=== PATIENT | male | born 1930 | race Caucasian/White ===

== ENCOUNTER 2017-03-25 19:52 | Inpatient (IN) | payer OTHER, BC ==
--- NOTE | 2017-03-25 20:09 | EDPHY ---
H & P Stated Complaint: lower back pain radiating down both legs x 2 days Time Seen by Provider: 03/25/17 20:26 HPI/ROS: CHIEF COMPLAINT: Low back pain HISTORY OF PRESENT ILLNESS: Information provided primarily by the patient's . This patient is an 86 year old male with history of non-Hodgkin's lymphoma, pacemaker, and dementia who presents to the Emergency Department via EMS for worsening low back pain over the past two months. He was originally diagnosed with non-Hodgkin's lymphoma in the summer of 2015. He was treated with chemotherapy, then was diagnosed with abdominal carcinomatosis and most recently completed chemo in 10/17, since which time he has been in remission. However, he has been complaining of worsening back pain over the past two months. His pain is in the low back and both legs. Recently he has been experiencing spasms of pain. He had a CT of the lumbar spine on 02/27 at [facility]. A steroid injection was performed 2 weeks ago. He was better for 1 day but has been progressively worsening since the injection. His reports that his pain has been worsening to the point of preventing him from ambulating appropriately around the house. She is unsure if he has bowel or urinary difficulties; no evidence of incontinence. REVIEW OF SYSTEMS: A ten point review of systems was performed but is limited secondary to the patient's dementia. does not report any additional complaints that she is aware of. Source: Family, Old records Exam Limitations: Clinical condition - Personal History Current Tetanus/Diphtheria Vaccine: Unsure Current Tetanus Diphtheria and Acellular Pertussis (TDAP): Unsure Tetanus Vaccine Date: this year - Medical/Surgical History Hx Asthma: No Hx Chronic Respiratory Disease: No Hx Diabetes: No Hx Cardiac Disease: Yes Hx Renal Disease: No Hx Cirrhosis: No Hx Alcoholism: No Hx HIV/AIDS: No Hx Splenectomy or Spleen Trauma: No Other PMH: pacemaker, TRIGEMINAL NEURALGIA, NON HODGKINS LYMPHOMA, LYMPH NODE REMOVAL, BASAL CELL ,afib, cad w/ stent,CARCINOMA REMOVED, UTI, viral bronchitis - Social History Smoking Status: Never smoked Alcohol Use: None Additional Social History: , who is the patient's integration aide, at bedside. Patient lives at home in a 3- story town home with his . 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 - Physical Exam Exam: General Appearance: Alert. Vital signs reviewed. Hypertensive at 139/76. Afebrile. Eyes: Pupils equal and round, no conjunctival injection, no discharge. Anicteric. ENT, Mouth: Mucous membranes are moist, no oropharyngeal erythema or edema. Neck: No lymphadenopathy, supple. No cervical spine tenderness. Respiratory: Lungs are clear to auscultation; no wheezes, rales, or rhonchi. Cardiovascular: Regular rate and rhythm; no murmur, rub, or gallop. Gastrointestinal: Abdomen is soft and nontender, no masses or organomegaly, bowel sounds normal. Rectal: Normal rectal tone. Skin: Warm and dry, no rashes on exposed skin, normal color. Back: Tender to palpation over the lower lumbar and sacral spine. No palpable deformities. Extremities: No lower extremity edema, no calf tenderness or swelling. Has 4+ over 5 lower extremity strength with the exception of left dorsiflexion which is 4/5. Sensation is intact to light touch. Neurological: Alert. Psychiatric: Normal affect. Cooperative and pleasant. Constitutional: Initial Vital Signs Temperature (C) 36.5 C 03/25/17 20:02 Heart Rate 69 03/25/17 20:02 Respiratory Rate 16 03/25/17 20:02 Blood Pressure 139/76 H 03/25/17 20:02 O2 Sat (%) 98 03/25/17 20:02 O2 Delivery Mode Room Air Allergies/Adverse Reactions: ciprofloxacin [From Cipro] Allergy (Intermediate, Verified 01/26/16 01:54) TENDONITIS Penicillins Allergy (Mild, Verified 01/26/16 01:54) Rash azithromycin [From Zithromax] Allergy (Verified 01/26/16 01:54) Home Medications: Medication Instructions Recorded Atorvastatin Calcium [Lipitor 20 20 mg PO HS 06/23/15 mg (*)] Cholecalciferol Vit D3 [Vitamin D3 1,000 units PO BID 06/23/15 (*)] Latanoprost 0.005% [Xalatan 0.005% 1 drops EACHEYE HS 06/23/15 (*)] Multivitamins [Multivitamin (*)] 1 each PO DAILY 06/23/15 Propafenone HCl Sr [Rythmol Sr 325 mg PO Q12 06/23/15 325mg (*)] Aspirin [Aspirin 81mg (*)] 81 mg PO HS 05/21/16 Levothyroxine [Synthroid 50 mcg 50 mcg PO DAILY06 05/31/16 (*)] Digoxin [Lanoxin 125 mcg (RX)] 125 mcg PO DAILY10 #0 tab 06/03/16 Acyclovir [Zovirax 400 mg (*)] 400 mg PO BID 06/23/16 Allopurinol [Allopurinol 300 MG 300 mg PO DAILY 06/23/16 (RX)] Cholecalciferol Vit D3 [Vitamin D3 1,000 units PO BID 06/23/16 (*)] Cyanocobalamin/Folic Acid [VITAMIN 1 each PO DAILY 06/23/16 [id number] ACID TABLET] Furosemide [Lasix 20 MG (*)] 20 mg PO DAILY 06/23/16 Prochlorperazine Maleate 10 mg PO Q6 PRN 06/23/16 [Compazine 10mg (*)] Sulfamethox/Tmp 800/160 mg 1 tab PO SUSA@,21 06/23/16 [Bactrim DS] predniSONE 100 mg PO DAILY 06/23/16 Acetaminophen [Tylenol 325mg (*)] 650 mg PO Q4 PRN #0 tab 06/26/16 Enoxaparin [Lovenox 80 MG (*)] 80 mg SQ BID #14 syr 06/26/16 Nitrofurantoin Macrobid [Macrobid] 100 mg PO BID #14 cap 06/26/16 Polyethylene Glycol 3350 [Miralax 17 gm PO DAILY PRN #0 pkt 06/26/16 17 gm (*)] Medical Decision Making ED Course/Re-evaluation: 86-year-old male with history of non-Hodgkin's lymphoma in remission since October presents with complaints of increasing low back pain and radicular symptoms over the past two months. He has worsened over the last 2 weeks, after receiving a lumbar steroid injection. Further history obtained by the suggests that his lymphoma originally presented similarly, so she is concerned of recurrence today. There is no apparent midline back tenderness on exam. Will proceed with labs and UA. CT scan of the lumbar spine was performed at the end of January. I have a written report of this study. Plan to repeat CT lumbar spine to assess for epidural hematoma, abscess, or malignancy. His is his primary integration aide and the live in a 3 story town home. I do not feel that they can manage at present. He is having difficulty ambulating because of pain and he also has some weakness of left dorsiflexion. He has been able to stand at the bedside in the emergency department but I do not feel that he could navigate their house safely. He has not received pain medication in the emergency department and seems comfortable as long as he is resting in the bed. His reports that he will likely become more confused at night and might become agitated. He is being admitted to the hospitalist service and I will request a bed that is near the nursing station. CT scan is pending at 11:00 p.m.. Differential Diagnosis: Back pain including but not limited to malignancy, epidural hematoma, epidural abscess, muscular pain, herniated disc, spine fracture, intra-abdominal causes and urinary tract infection. - Data Points Laboratory Results: Laboratory Results 03/25/17 21:01 03/25/17 21:01 03/25/17 03/25/17 03/25/17 21:01 21:01 20:50 WBC 5.27 10^3/uL 10^3/uL (3.80-9.50) RBC 4.23 10^6/uL L 10^6/uL (4.40-6.38) Hgb 12.8 g/dL L g/dL (13.7-17.5) Hct 38.7 % L % (40.0-51.0) MCV 91.5 fL fL (81.5-99.8) MCH 30.3 pg pg (27.9-34.1) MCHC 33.1 g/dL g/dL (32.4-36.7) RDW 13.2 % % (11.5-15.2) Plt Count 202 10^3/uL 10^3/uL (150-400) MPV 9.6 fL fL (8.7-11.7) Neut % (Auto) 55.4 % % (39.3-74.2) Lymph % (Auto) 15.2 % % (15.0-45.0) [place] % (Auto) 19.9 % H % (4.5-13.0) Eos % (Auto) 8.0 % H % (0.6-7.6) Baso % (Auto) 0.6 % % (0.3-1.7) Nucleat RBC Rel Count 0.0 % % (0.0-0.2) Absolute Neuts (auto) 2.92 10^3/uL 10^3/uL (1.70-6.50) Absolute Lymphs (auto) 0.80 10^3/uL L 10^3/uL (1.00-3.00) Absolute Monos (auto) 1.05 10^3/uL H 10^3/uL (0.30-0.80) Absolute Eos (auto) 0.42 10^3/uL H 10^3/uL (0.03-0.40) Absolute Basos (auto) 0.03 10^3/uL 10^3/uL (0.02-0.10) Absolute Nucleated RBC 0.00 10^3/uL 10^3/uL (0-0.01) Immature Gran % 0.9 % % (0.0-1.1) Immature Gran # 0.05 10^3/uL 10^3/uL (0.00-0.10) Sodium 131 mEq/L L mEq/L (134-144) Potassium 4.0 mEq/L mEq/L (3.5-5.2) Chloride 96 mEq/L L mEq/L (97-110) Carbon Dioxide 28 mEq/l mEq/l (22-31) Anion Gap 7 mEq/L L mEq/L (8-16) BUN 16 mg/dL mg/dL (7-23) Creatinine 0.6 mg/dL L mg/dL (0.7-1.3) Estimated GFR > 60 Glucose 85 mg/dL mg/dL (70-100) Calcium 9.1 mg/dL mg/dL (8.5-10.4) Urine Color YELLOW Urine Appearance CLEAR Urine pH 5.0 (5.0-7.5) Ur Specific [place] 1.016 (1.002-1.030) Urine Protein NEGATIVE (NEGATIVE) Urine Ketones NEGATIVE (NEGATIVE) Urine Blood NEGATIVE (NEGATIVE) Urine Nitrate NEGATIVE (NEGATIVE) Urine Bilirubin NEGATIVE (NEGATIVE) Urine Urobilinogen NEGATIVE EU EU (0.2-1.0) Ur Leukocyte Esterase TRACE H (NEGATIVE) Urine RBC 3-5 /hpf H /hpf (0-3) Urine WBC 3-5 /hpf H /hpf (0-3) Ur Epithelial Cells TRACE /lpf /lpf (NONE-1+) Calcium Oxalate Crystal PRESENT /hpf /hpf (NONE-1+) Urine Mucus TRACE /lpf /lpf (NONE-1+) Urine Glucose NEGATIVE (NEGATIVE) Departure - Departure Disposition: [facility] Inpatient Acute Clinical Impression: Back pain Qualifiers: Back pain location: low back pain Chronicity: acute Back pain laterality: bilateral Sciatica presence: with sciatica Sciatica laterality: bilateral sciatica Qualified Code(s): M54.42 - Lumbago with sciatica, left side; M54.41 - Lumbago with sciatica, right side Condition: Good Report Scribed for: Marita Soto Physician Review and Approval Statement: 03/25/17 20:09 Portions of this note were transcribed by the medical surgery nurse. I, Dr. Marita Soto, personally performed the history, physical exam, and medical decision- making; and confirmed the accuracy of the information in the transcribed note.
[2017-03-25 21:01] LABS: COLOR YELLOW; LEUKOCYTE ESTERASE,URINE TRACE (NEGATIVE); NITRITE,URINE NEGATIVE (NEGATIVE)
[2017-03-25 21:05] LABS: MUCUS TRACE /lpf (NONE-1+)
[2017-03-25 21:21] LABS: % IMMATURE GRANULYOCYTES 0.9 % (0.0-1.1); ABSOLUTE IMMATURE GRANULOCYTES 0.05 10^3/uL (0.00-0.10); ADD DIFF? NO; ADD MORPH? NO; ADD SCAN? NO; ATYPICAL LYMPHOCYTE FLAG 50 (0-99); FRAGMENT RBC FLAG 0 (0-99); HEMATOCRIT 38.7 % (40.0-51.0); HEMOGLOBIN 12.8 g/dL (13.7-17.5); LEFT SHIFT FLG 10 (0-99); LIPEMIA HEMOLYSIS FLAG 80 (0-99); MEAN CELL HEMOGLOBIN 30.3 pg (27.9-34.1); MEAN CELL HEMOGLOBIN CONCENTR. 33.1 g/dL (32.4-36.7); MEAN CELL VOLUME 91.5 fL (81.5-99.8); MEAN PLATELET VOLUME 9.6 fL (8.7-11.7); PLATELET CLUMPS FLAG 10 (0-99); PLATELET COUNT 202 10^3/uL (150-400); RED BLOOD CELL COUNT 4.23 10^6/uL (4.40-6.38); RED CELL DISTRIBUTION WIDTH 13.2 % (11.5-15.2)
[2017-03-25 21:40] LABS: ANION GAP 7 mEq/L (8-16); CALCIUM 9.1 mg/dL (8.5-10.4); CARBON DIOXIDE 28 mEq/l (22-31); CHLORIDE 96 mEq/L (97-110); CREATININE 0.6 mg/dL (0.7-1.3); GLOMERULAR FILTRATION RATE > 60; GLUCOSE 85 mg/dL (70-100); SODIUM 131 mEq/L (134-144)
[2017-03-25] MEDS ORDERED: IOPAMIDOL (ISOVUE-300) 100 ML BTL ONE (22:09)
[2017-03-26] MEDS ORDERED: ONDANSETRON DISINTEGRATING 4 MG TAB PO PRN (00:17)
[2017-03-26] MEDS ORDERED: HYDROmorphONE/DILAUDID 1 MG/ML SYR IVP PRN (00:17)
[2017-03-26] MEDS ORDERED: ONDANSETRON 4 MG/2 ML VIAL IVP PRN (00:17)
[2017-03-26] MEDS: DEXAMETHASONE 4 MG/ML VIAL IVP SCH ×4 (00:46→18:07)
--- NOTE | 2017-03-26 04:24 | PDGENHP ---
History and Physical - Chief Complaint back pain - History of Present Illness Patient was seen and examined on 03/25/2017. 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 Patient was initially diagnosed with DLBCL in 05/2016, began chemotherapy in 06/2016 and evaluation in 10/2016 revealed complete remission. About 2 months ago, patient reports the onset of new mid low back pain, radiating down bilateral legs. In January, this was evaluated in by [facility] with a CT of the lumbar spine. This CT revealed a nonspecific L3-L4 hyperdensity of unclear etiology at that time. His pain continued to progress and about two weeks ago, patient underwent a spinal injection with cortisone and he reports immediate significant relief with this. This relief last a little over a week and then the pain recurred. Pain is located in his mid-line sacral area, radiating into his bilateral buttocks, and now resulting in weakness and decreased sensation in his bilateral lower extremities. His states that this weakness has caused his gait to become unsteady and he did fall about 3 days prior to presentation, resulting in minor abrasions on his arm. His difficulty ambulating continued and by today, he was unable to move around his home wihtout significant pain. He was going up the stairs to his bedroom on his buttocks and was crawling most of the day. He was scheduled for another cortisone injection tomorrow, however, given this progression of his symptoms, his brought him into the ED for further evaluation. On arrival to the ED patient was afebrile hemodynamically stable. Labs were largely unremarkable. CT of the L-spine was then obtained and patient was admitted to the hospitalist service further management. History Information - Allergies/Home Medication List Allergies/Adverse Reactions: ciprofloxacin [From Cipro] Allergy (Intermediate, Verified 01/26/16 01:54) TENDONITIS Penicillins Allergy (Mild, Verified 01/26/16 01:54) Rash azithromycin [From Zithromax] Allergy (Verified 01/26/16 01:54) Home Medications: Atorvastatin Calcium [Lipitor 20 mg (*)] 20 mg PO HS 06/23/15 [Last Taken ] Cholecalciferol Vit D3 [Vitamin D3 (*)] 1,000 units PO BID 06/23/15 [Last Taken 05/30/16] Latanoprost 0.005% [Xalatan 0.005% (*)] 1 drops EACHEYE HS 06/23/15 [Last Taken 06/22/16] Multivitamins [Multivitamin (*)] 1 each PO DAILY 06/23/15 [Last Taken 05/30/16] Propafenone HCl Sr [Rythmol Sr 325mg (*)] 325 mg PO Q12 06/23/15 [Last Taken ] Aspirin [Aspirin 81mg (*)] 81 mg PO HS 05/21/16 [Last Taken 05/30/16] Levothyroxine [Synthroid 50 mcg (*)] 50 mcg PO DAILY06 05/31/16 [Last Taken ] Acyclovir [Zovirax 400 mg (*)] 400 mg PO BID 06/23/16 [Last Taken Unknown] Allopurinol [Allopurinol 300 MG (RX)] 300 mg PO DAILY 06/23/16 [Last Taken Unknown] Cholecalciferol Vit D3 [Vitamin D3 (*)] 1,000 units PO BID 06/23/16 [Last Taken Unknown] Cyanocobalamin/Folic Acid [VITAMIN D19-QIHEO ACID TABLET] 1 each PO DAILY [Last Taken Unknown] Furosemide [Lasix 20 MG (*)] 20 mg PO DAILY 06/23/16 [Last Taken 06/22/16] Prochlorperazine Maleate [Compazine 10mg (*)] 10 mg PO Q6 PRN 06/23/16 [Last Taken Unknown] Sulfamethox/Tmp 800/160 mg [Bactrim DS] 1 tab PO SUSA@06/23/16 [Last Taken Unknown] predniSONE 100 mg PO DAILY 06/23/16 [Last Taken 06/23/16 20MG] I have personally reviewed and updated: family history, medical history, social history, surgical history - Past Medical History Additional medical history: diffuse B cell lymphoma (Dx 05/2016, in remission as 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 Dementia. Afib with PPM. CAD with previous PCI - Surgical History Additional surgical history: PPM placement - Family History Positive for: non-pertinent - Social History Smoking Status: Never smoked Alcohol Use: None Drug Use: None Additional social history: Patient lives with his , is dependent on her for most ADLs Review of Systems ROS: 10pt was reviewed & negative except for what was stated in HPI & below Gastrointestinal: Reports: constipation Physical Exam Temp Pulse Resp BP Pulse Ox 36.6 C 67 16 153/84 H 91 L 03/26/17 00:21 03/26/17 00:21 03/26/17 00:21 03/26/17 00:21 03/26/17 00:21 Constitutional: no apparent distress, appears nourished, not in pain Eyes: PERRL, anicteric sclera, EOMI Ears, Nose, Mouth, Throat: moist mucous membranes, ears appear normal, no oral mucosal ulcers, hard of hearing Cardiovascular: regular rate and rhythym, no murmur, rub, or gallop, pulses symmetric bilaterally, No JVD, No edema Peripheral Pulses: 2+: dorsalis-pedis (R), dorsalis-pedis (L) Respiratory: no respiratory distress, no rales or rhonchi, clear to auscultation Gastrointestinal: normoactive bowel sounds, soft, non-tender abdomen, no palpable masses, No guarding, No rebound, No distension Genitourinary: no bladder fullness, no bladder tenderness Skin: warm, normal color, no rashes or abrasions, no fluctuance, no induration, No mottled Musculoskeletal: pain with ROM (in L spine; no point spinal tenderness) Neurologic: weakness (in dorsiflexion of L foot; normal plantar flexion b/l; decreased sensation to light touch bilaterally ), CN II-XII Intact, other ( oriented to person, hospital; at baseline mental status), No pronator drift, No facial droop Psychiatric: interacting appropriately, not anxious, not encephalopathic, other (dementia) Lab Data & Imaging Review 03/25/17 21:01 03/25/17 21:01 WBC 5.27 10^3/uL (3.80-9.50) 03/25/17 21:01 RBC 4.23 10^6/uL (4.40-6.38) L 03/25/17 21:01 Hgb 12.8 g/dL (13.7-17.5) L 03/25/17 21: Hct 38.7 % (40.0-51.0) L 03/25/17 21:01 MCV 91.5 fL (81.5-99.8) 03/25/17 21:01 MCH 30.3 pg (27.9-34.1) 03/25/17 21:01 MCHC 33.1 g/dL (32.4-36.7) 03/25/17 21:01 RDW 13.2 % (11.5-15.2) 03/25/17 21: Plt Count 202 10^3/uL (150-400) 03/25/17 21:01 MPV 9.6 fL (8.7-11.7) 03/25/17 21:01 Neut % (Auto) 55.4 % (39.3-74.2) 03/25/17 21: Lymph % (Auto) 15.2 % (15.0-45.0) 03/25/17 21:01 [place] % (Auto) 19.9 % (4.5-13.0) H 03/25/17 21:01 Eos % (Auto) 8.0 % (0.6-7.6) H 03/25/17 21:01 Baso % (Auto) 0.6 % (0.3-1.7) 03/25/17 21:01 Nucleat RBC Rel Count 0.0 % (0.0-0.2) 03/25/17 21:01 Absolute Neuts (auto) 2.92 10^3/uL (1.70-6.50) 03/25/17 21:01 Absolute Lymphs (auto) 0.80 10^3/uL (1.00-3.00) L 03/25/17 21:01 Absolute Monos (auto) 1.05 10^3/uL (0.30-0.80) H 03/25/17 21:01 Absolute Eos (auto) 0.42 10^3/uL (0.03-0.40) H 03/25/17 21:01 Absolute Basos (auto) 0.03 10^3/uL (0.02-0.10) 03/25/17 21:01 Absolute Nucleated RBC 0.00 10^3/uL (0-0.01) 03/25/17 21:01 Immature Gran % 0.9 % (0.0-1.1) 03/25/17 21:01 Immature Gran # 0.05 10^3/uL (0.00-0.10) 03/25/17 21:01 Sodium 131 mEq/L (134-144) L 03/25/17 21:01 Potassium 4.0 mEq/L (3.5-5.2) 03/25/17 21:01 Chloride 96 mEq/L (97-110) L 03/25/17 21:01 Carbon Dioxide 28 mEq/l (22-31) 03/25/17 21:01 Anion Gap 7 mEq/L (8-16) L 03/25/17 21:01 BUN 16 mg/dL (7-23) 03/25/17 21:01 Creatinine 0.6 mg/dL (0.7-1.3) L 03/25/17 21:01 Estimated GFR > 60 03/25/17 21:01 Glucose 85 mg/dL (70-100) 03/25/17 21:01 Calcium 9.1 mg/dL (8.5-10.4) 03/25/17 21:01 Urine Color YELLOW 03/25/17 20:50 Urine Appearance CLEAR 03/25/17 20:50 Urine pH 5.0 (5.0-7.5) 03/25/17 20:50 Ur Specific [place] 1.016 (1.002-1.030) 03/25/17 20:50 Urine Protein NEGATIVE (NEGATIVE) 03/25/17 20:50 Urine Ketones NEGATIVE (NEGATIVE) 03/25/17 20:50 Urine Blood NEGATIVE (NEGATIVE) 03/25/17 20:50 Urine Nitrate NEGATIVE (NEGATIVE) 03/25/17 20:50 Urine Bilirubin NEGATIVE (NEGATIVE) 03/25/17 20:50 Urine Urobilinogen NEGATIVE EU (0.2-1.0) 03/25/17 20:50 Ur Leukocyte Esterase TRACE (NEGATIVE) H 03/25/17 20:50 Urine RBC 3-5 /hpf (0-3) H 03/25/17 20:50 Urine WBC 3-5 /hpf (0-3) H 03/25/17 20:50 Ur Epithelial Cells TRACE /lpf (NONE-1+) 03/25/17 20:50 Calcium Oxalate Crystal PRESENT /hpf (NONE-1+) 03/25/17 20:50 Urine Mucus TRACE /lpf (NONE-1+) 03/25/17 20:50 Urine Glucose NEGATIVE (NEGATIVE) 03/25/17 20:50 Visualized and Interpreted imaging results: Yes Interpretation: CT L-spine: hyperdensity at L3-L4 space of unclear etiology, unchanged from January CT. Assessment & Plan Assessment: Patient is an 86 year old male with DBCL previously complicated by abdominal carcinomatosis (reportedly in remission since 10/2016), Afib with PPM, dementia and CAD who presents to the ED with complaint of low back pain. Pain has been present for about 2 months, symptomatically improved after a cortisone injection 2 weeks ago. Now pain has recurred, is acutely worse and associated with lower extremity weakness. Plan: # acute back pain Patient's description of the pain appears consistent with an acute/subacute radiculopathy, with cord injury also on the differential. CT L-spine obtained in ED reveals a hyperintensity in the central canal at L3-L4 of unclear etiology , but largely unchanged from 02/2016 outpatient study. Recommend L myelogram for further characterization. Will initiate dexamethasone for pain control, as well as flexeril, NSAIDs/Tylenol and dilaudid prn for severe pain. - f/u Myelogram in AM, if significant findings, consult Neurosurgery - dexamethasone 4mg IV q6h - tylenol 500-1000 mg po q6h - flexeril 10 mg q8h prn - IV toradol q6h - oxy/dilaudid prn for breakthrough pain # Afib with PPM HR stable on presentation. Will check digoxin level; resume home meds and monitor. Patient on only full dose aspirin for anticoagulation, which was being held for spinal cortisone shot that was scheduled for 03/26 as outpatient. Will resume if not getting injection # dementia MS appears to be at baseline. Will monitor for sundowning/acute delirium in hospital setting. # DLBC lymphoma Per imaging from 10/2016, disease is in full remission. It is unclear if Lumbar imaging findings are related to disease process. Will follow up myelogram and inform [facility] of patient's admission. # dispo: admit to inpatient status for likely > 2 [place] stay # gen: NPO for myelogram DVT ppx: lovenox DNR, as expressed by patient and his on admission.
[2017-03-26] MEDS: CYCLOBENZAPRINE 10 MG TAB PO PRN ×2 (05:32→21:38)
[2017-03-26 05:39] LABS: % IMMATURE GRANULYOCYTES 0.9 % (0.0-1.1); ABSOLUTE IMMATURE GRANULOCYTES 0.05 10^3/uL (0.00-0.10); ADD DIFF? NO; ADD MORPH? NO; ADD SCAN? NO; ATYPICAL LYMPHOCYTE FLAG 10 (0-99); FRAGMENT RBC FLAG 0 (0-99); HEMATOCRIT 41.2 % (40.0-51.0); HEMOGLOBIN 13.9 g/dL (13.7-17.5); LEFT SHIFT FLG 10 (0-99); LIPEMIA HEMOLYSIS FLAG 80 (0-99); MEAN CELL HEMOGLOBIN 30.5 pg (27.9-34.1); MEAN CELL HEMOGLOBIN CONCENTR. 33.7 g/dL (32.4-36.7); MEAN CELL VOLUME 90.5 fL (81.5-99.8); MEAN PLATELET VOLUME 9.8 fL (8.7-11.7); PLATELET CLUMPS FLAG 0 (0-99); PLATELET COUNT 216 10^3/uL (150-400); RED BLOOD CELL COUNT 4.55 10^6/uL (4.40-6.38)
[2017-03-26 05:53] LABS: INR 1.05 (0.83-1.16); PROTIME(PATIENT) 13.6 SEC (12.0-15.0)
[2017-03-26 05:54] LABS: APTT 31.3 SEC (23.0-38.0)
[2017-03-26 06:02] LABS: ANION GAP 9 mEq/L (8-16); CALCIUM 9.2 mg/dL (8.5-10.4); CARBON DIOXIDE 28 mEq/l (22-31); CHLORIDE 99 mEq/L (97-110); CREATININE 0.6 mg/dL (0.7-1.3); DIGOXIN 0.7 ng/mL (0.8-2.0); GLOMERULAR FILTRATION RATE > 60; GLUCOSE 131 mg/dL (70-100); MAGNESIUM 1.8 mg/dL (1.6-2.3); POTASSIUM 4.1 mEq/L (3.5-5.2); SODIUM 136 mEq/L (134-144)
[2017-03-26] MEDS: oxyCODONE IR 5 MG TAB PO PRN (09:21)
--- NOTE | 2017-03-26 09:52 | HOSPPROG ---
Hospitalist Progress Note Assessment/Plan: #Lumbar Radiculopathy: -pt reports improvement -cont with steroids and pain mgmt #Diffuse B-Cell Lymphoma, reported remission October 2016 -CC to be notified #Attenuation of L3/L4 by CT scan of unclear significance. Unchanged from recent outpatient study. -Myelogram as recommended by Radiology is pending #Hx of Afib with PPM, no acute issues. #Dementia, reported baseline. He is confused. Not a good historian #CAD Plan: -Await Myelogram -Cont steroids and pain mgmt. Limit use of Toradol -PT/OT -[facility] to be notified -Home meds are being confirmed. Not available at this time -Lovenox for DVT proph -DNR Subjective: Feels better. Bilateral leg strength is improving. Denies pain. Denies numbness. No CP or SOB. This is my first encounter with this patient. Objective: Vital Signs Temp Pulse Resp BP Pulse Ox 37.0 C 72 18 110/68 94 03/26/17 08:00 03/26/17 08:00 03/26/17 08:00 03/26/17 08:00 03/26/17 08:00 Laboratory Results 03/26/17 04:38 03/26/17 04:38 03/25/17 03/26/17 03/27/17 05:59 05:59 05:59 Intake Total 100 Output Total 1100 400 Balance -1000 -400 PT 13.6 SEC (12.0-15.0) 03/26/17 04:38 INR 1.05 (0.83-1.16) 03/26/17 04:38 - Physical Exam Constitutional: no apparent distress Eyes: PERRL, EOMI Ears, Nose, Mouth, Throat: moist mucous membranes, No hearing normal Cardiovascular: regular rate and rhythym, No JVD Respiratory: no respiratory distress, clear to auscultation Gastrointestinal: normoactive bowel sounds, soft, non-tender abdomen, No tenderness Skin: warm, normal color Musculoskeletal: other (Left Foot: 4/5 dorsiflexion) Neurologic: weakness (lower extremity bilaterally), CN II-XII Intact, No AAOx3 Psychiatric: poor memory ICD10 Worksheet Patient Problems: Problems Problem Status Onset Back pain Acute Ataxia Acute
[2017-03-26] MEDS: ENOXAPARIN 40 MG/0.4 ML SYR SC SCH (10:28)
[2017-03-26] MEDS: DIGOXIN 125 MCG TAB PO SCH (16:22)
[2017-03-26] MEDS: ACETAMINOPHEN 500 MG TAB PO PRN (16:22)
[2017-03-26] MEDS: ASPIRIN 81 MG CHEWABLE TAB PO SCH (18:07)
[2017-03-26] MEDS: ATORVASTATIN CALCIUM 20 MG TAB PO SCH (21:38)
[2017-03-26] MEDS: CHOLECALCIFEROL VIT D3 1,000 UNITS TAB PO SCH (21:38)
[2017-03-26] MEDS: PROPAFENONE HCL SR 325 MG CAP PO SCH (21:38)
[2017-03-26] MEDS: LATANOPROST 0.005% 2.5 ML OPHT DROPS EACHEYE SCH (21:39)
[2017-03-27] MEDS: oxyCODONE IR 5 MG TAB PO PRN (00:56)
[2017-03-27] MEDS: ACETAMINOPHEN 500 MG TAB PO PRN (00:56)
[2017-03-27] MEDS: DEXAMETHASONE 4 MG/ML VIAL IVP SCH ×4 (00:57→18:06)
[2017-03-27 05:38] LABS: ANION GAP 5 mEq/L (8-16); CALCIUM 9.5 mg/dL (8.5-10.4); CARBON DIOXIDE 29 mEq/l (22-31); CHLORIDE 98 mEq/L (97-110); CREATININE 0.6 mg/dL (0.7-1.3); GLOMERULAR FILTRATION RATE > 60; GLUCOSE 139 mg/dL (70-100); POTASSIUM 4.9 mEq/L (3.5-5.2); SODIUM 132 mEq/L (134-144)
[2017-03-27] MEDS: LEVOTHYROXINE 50 MCG TAB PO SCH (07:29)
[2017-03-27] MEDS: PROPAFENONE HCL SR 325 MG CAP PO SCH ×2 (08:45→20:24)
[2017-03-27] MEDS: ENOXAPARIN 40 MG/0.4 ML SYR SC SCH (08:46)
[2017-03-27] MEDS: OMEGA-3 FATTY ACIDS 1,000 MG CAP PO SCH (08:46)
[2017-03-27] MEDS: CHOLECALCIFEROL VIT D3 1,000 UNITS TAB PO SCH ×2 (08:46→20:23)
[2017-03-27] MEDS: MULTIVITAMINS 1 EACH TAB PO SCH (08:46)
[2017-03-27] MEDS ORDERED: HALOPERIDOL LACT 5 MG/ML INJ IVP PRN (09:32)
--- NOTE | 2017-03-27 09:38 | HOSPPROG ---
Hospitalist Progress Note Assessment/Plan: 86 yo male with hx of B-Cell Lymphoma ( in remission) admitted for acute lumbar radiculopathy. Imaging c/w stable L3/L4 attenuation of unclear etiology. Given the patients advanced dementia, the family has opted not to do a myelogram. Radiculopathy is improving, but he still has significant left leg weakness and is likely a good candidate for SNF or Rehab. His hospitalization has been complicated by agitation likely due to his advance dementia. #Lumbar Radiculopathy: -cont with steroids and pain mgmt #Diffuse B-Cell Lymphoma, reported remission October 2016 -[facility] notified. May follow peripherally #Attenuation of L3/L4 by CT scan of unclear significance. Unchanged from recent outpatient study. -Myelogram not performed per above #Hx of Afib with PPM, no acute issues. #Dementia with agitation -will start Haldol. Avoid prolonged QT. Will hold Zofran #CAD Plan: Per above. Continue with PT/OT, steroids. Will likely need placement. -Lovenox for DVT proph -DNR Subjective: acutely confused and agitated. requiring a sitter. Objective: Vital Signs Temp Pulse Resp BP Pulse Ox 36.4 C 77 16 120/63 92 03/26/17 22:09 03/26/17 22:09 03/26/17 22:09 03/26/17 22:09 03/26/17 22:09 Laboratory Results 03/26/17 04:38 03/27/17 04:55 03/26/17 03/27/17 03/28/17 05:59 05:59 05:59 Intake Total 100 700 Output Total 1100 850 Balance -1000 -150 PT 13.6 SEC (12.0-15.0) 03/26/17 04:38 INR 1.05 (0.83-1.16) 03/26/17 04:38 - Physical Exam Constitutional: uncomfortable Eyes: PERRL, EOMI Ears, Nose, Mouth, Throat: moist mucous membranes, hearing normal Cardiovascular: regular rate and rhythym, no murmur, rub, or gallop Respiratory: no respiratory distress Gastrointestinal: soft, non-tender abdomen Skin: warm Musculoskeletal: other (left leg weakness. Cannot ambulate without diffuculty) Neurologic: AAOx3, weakness Psychiatric: encephalopathic, anxious, poor insight, poor judgement, poor memory , No not anxious, No not encephalopathic ICD10 Worksheet Patient Problems: Problems Problem Status Onset Back pain Acute Ataxia Acute
[2017-03-27] MEDS: DIGOXIN 125 MCG TAB PO SCH (09:44)
[2017-03-27] MEDS: ASPIRIN 81 MG CHEWABLE TAB PO SCH (18:06)
[2017-03-27] MEDS: ATORVASTATIN CALCIUM 20 MG TAB PO SCH (20:23)
[2017-03-27] MEDS: LATANOPROST 0.005% 2.5 ML OPHT DROPS EACHEYE SCH (20:26)
[2017-03-28] MEDS: DEXAMETHASONE 4 MG/ML VIAL IVP SCH ×5 (00:41→23:13)
[2017-03-28] MEDS: LEVOTHYROXINE 50 MCG TAB PO SCH (06:23)
[2017-03-28] MEDS: CHOLECALCIFEROL VIT D3 1,000 UNITS TAB PO SCH ×2 (08:15→19:59)
[2017-03-28] MEDS: MULTIVITAMINS 1 EACH TAB PO SCH (08:15)
[2017-03-28] MEDS: OMEGA-3 FATTY ACIDS 1,000 MG CAP PO SCH (08:16)
[2017-03-28] MEDS: ENOXAPARIN 40 MG/0.4 ML SYR SC SCH (08:16)
[2017-03-28] MEDS: PROPAFENONE HCL SR 325 MG CAP PO SCH ×2 (08:19→20:00)
[2017-03-28] MEDS: DIGOXIN 125 MCG TAB PO SCH (11:02)
[2017-03-28] MEDS ORDERED: LACTULOSE 20 GM/30 ML UDCUP PO PRN (11:52)
[2017-03-28] MEDS ORDERED: MAGNESIUM HYDROXIDE 30 ML UDCUP PO PRN (11:52)
[2017-03-28] MEDS ORDERED: POLYETHYLENE GLYCOL 3350 17 GM PKT PO PRN (11:52)
[2017-03-28] MEDS ORDERED: BISACODYL 10 MG SUPP PR PRN (11:52)
[2017-03-28] MEDS: ACETAMINOPHEN 500 MG TAB PO PRN (12:23)
--- NOTE | 2017-03-28 14:06 | HOSPPROG ---
Hospitalist Progress Note Assessment/Plan: 86 yo male with hx of B-Cell Lymphoma ( in remission) admitted for acute lumbar radiculopathy. Imaging c/w stable L3/L4 attenuation of unclear etiology. Given the patients advanced dementia, the family has opted not to do a myelogram. Radiculopathy is improving, but he still has significant left leg weakness and is likely a good candidate for SNF or Rehab. His hospitalization has been complicated by agitation likely due to his advance dementia. This is my first encounter with this pt. Chart reviewed. 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 May follow peripherally #Attenuation of L3/L4 by CT scan of unclear significance. Unchanged from recent outpatient study. -Myelogram not performed per above #Constipation -was off his normal senna, restarted -Bowel protocol #Hx of Afib with PPM, no acute issues. #Dementia with agitation -will start Haldol. Avoid prolonged QT. Will hold Zofran #CAD Plan: Per above. Continue with PT/OT, steroids. D/W CM Plan for DC to SNF in am -Lovenox for DVT proph -DNR Subjective: Up in chair. at bedside. Back pain better. Having some gas. Objective: Vital Signs Temp Pulse Resp BP Pulse Ox 36.6 C 66 14 138/73 H 90 L 03/28/17 07:55 03/28/17 07:55 03/28/17 07:55 03/28/17 07:55 03/28/17 07:55 Laboratory Results 03/26/17 04:38 03/27/17 04:55 03/27/17 03/28/17 03/29/17 05:59 05:59 05:59 Intake Total 700 350 Output Total 850 1300 Balance -150 -950 PT 13.6 SEC (12.0-15.0) 03/26/17 04:38 INR 1.05 (0.83-1.16) 03/26/17 04:38 - Physical Exam Constitutional: no apparent distress, appears nourished, uncomfortable Eyes: PERRL, anicteric sclera, EOMI Ears, Nose, Mouth, Throat: moist mucous membranes, hearing normal, ears appear normal Cardiovascular: No JVD, No tachycardia, No edema Respiratory: no respiratory distress, clear to auscultation, reduced air movement Gastrointestinal: No tenderness, No ascites, No guarding Skin: warm, normal color, No erythema Musculoskeletal: no joint effusions, pain with ROM, generalized weakness Psychiatric: not anxious, not encephalopathic, poor insight, poor judgement, poor memory ICD10 Worksheet Patient Problems: Problems Problem Status Onset Ataxia Acute Back pain Acute
[2017-03-28] MEDS: ASPIRIN 81 MG CHEWABLE TAB PO SCH (17:59)
[2017-03-28] MEDS: SENNOSIDES/DOCUSATE SODIUM TAB PO SCH (19:58)
[2017-03-28] MEDS: ATORVASTATIN CALCIUM 20 MG TAB PO SCH (19:59)
[2017-03-28] MEDS: LATANOPROST 0.005% 2.5 ML OPHT DROPS EACHEYE SCH (20:00)
[2017-03-29] MEDS: LEVOTHYROXINE 50 MCG TAB PO SCH (04:50)
[2017-03-29] MEDS: DEXAMETHASONE 4 MG/ML VIAL IVP SCH ×2 (05:40→11:57)
[2017-03-29 07:48] VITALS: RESP 12; TEMP 97.5
[2017-03-29] MEDS: PROPAFENONE HCL SR 325 MG CAP PO SCH (09:09)
[2017-03-29] MEDS: OMEGA-3 FATTY ACIDS 1,000 MG CAP PO SCH (09:11)
[2017-03-29] MEDS: CHOLECALCIFEROL VIT D3 1,000 UNITS TAB PO SCH (09:11)
[2017-03-29] MEDS: MULTIVITAMINS 1 EACH TAB PO SCH (09:11)
[2017-03-29] MEDS: SENNOSIDES/DOCUSATE SODIUM TAB PO SCH (09:14)
[2017-03-29] MEDS: ENOXAPARIN 40 MG/0.4 ML SYR SC SCH (09:17)
[2017-03-29] MEDS: DIGOXIN 125 MCG TAB PO SCH (09:58)
--- NOTE | 2017-03-29 10:31 | PDIAF ---
- Diagnosis Diagnosis: back pain Code Status: Do Not Resuscitate - Medication Management Discharge Medications: Medications to Continue on Transfer Atorvastatin Calcium [Lipitor 20 mg (*)] 20 mg PO HS 06/23/15 [Last Taken ] Latanoprost 0.005% [Xalatan 0.005% (*)] 1 drops EACHEYE HS 06/23/15 [Last Taken 03/24/17] Multivitamins [Multivitamin (*)] 1 each PO DAILY 06/23/15 [Last Taken 03/25/17] Propafenone HCl Sr [Rythmol Sr 325mg (*)] 325 mg PO BID 06/23/15 [Last Taken ] Aspirin [Aspirin 81mg (*)] 81 mg PO DAILY18 05/21/16 [Last Taken 05/30/16] Levothyroxine [Synthroid 50 mcg (*)] 50 mcg PO DAILY06 05/31/16 [Last Taken ] Digoxin [Lanoxin 125 mcg (RX)] 125 mcg PO DAILY10 #0 tab 06/03/16 [Last Taken ] Cholecalciferol Vit D3 [Vitamin D3 (*)] 1,000 units PO BID 06/23/16 [Last Taken 03/25/17] [place]-3 Fatty Acids [Fish Oil 1000 mg (*)] 1,000 mg PO DAILY 03/26/17 [Last Taken Unknown] Acetaminophen [Tylenol ES 500 mg (*)] 500 - 1,000 mg PO Q6HRS PRN #0 tab [Last Taken Unknown] Cyclobenzaprine [Flexeril 10 MG (*)] 10 mg PO TID PRN #0 tab 03/29/17 [Last Taken Unknown] Dexamethasone [Decadron 2 MG (*)] 2 mg PO DAILY #12 tab 03/29/17 [Last Taken Unknown] Polyethylene Glycol 3350 [Miralax 17 gm (*)] 17 gm PO DAILY PRN #0 pkt 03/29/17 [Last Taken Unknown] Sennosides/Docusate Sodium [Senokot-S] 1 - 2 tab PO BID tab 03/29/17 [Last Taken Unknown] Discharge Medications: Refer to the Discharge Home Medication list for PRN reason. PICC Care - Routine: N/A - Orders Services needed: Registered Nurse, Physical Therapy, Occupational Therapy Diet Recommendation: no restrictions on diet - Follow Up Care Current Providers and Referrals: Patient,NotPresent [Unknown] - As per Instructions
[2017-03-29] MEDS ORDERED: MAGNESIUM CITRATE 300 ML BOTTLE PO ONE (11:00)
--- NOTE | 2017-03-29 11:31 | GDS ---
[f rep st] DISCHARGE SUMMARY DISCHARGE DIAGNOSES: 1. Lumbar radiculopathy. 2. Diffuse B-cell lymphoma, in remission. 3. Attenuation of L3-L4 on CT scan. 4. Constipation. 5. History of atrial fibrillation with a permanent pacemaker. 6. Dementia. 7. History of coronary artery disease. STUDIES AND PROCEDURES: CT of the lumbar spine. PHYSICAL EXAM: GENERAL: The patient is alert. VITAL SIGNS: Afebrile at 36.4, pulse is 62, respir atory rate 12, blood pressure is 139/80. He is saturating 91% on room air. I have seen and evaluat ed the patient on the day of discharge. HOSPITAL COURSE: The patient is an 86-year-old male who presented to the hospital with complaints o f back pain. He was evaluated and diagnosed with: 1. Lumbar radiculopathy. During this hospitalization, he received a CT scan of his lumbar spine. He was unable to do an MRI secondary to pacemaker placement. CT scan showed attenuation at L3-L4 of unclear significance. A CT myelogram was offered, but opted not to be performed by the patient and his family. He does not want any aggressive care. He has been treated with oral steroids and will continue this taper in the outpatient setting. He has been prescribed a Decadron taper at the time of disposition. His back pain is significantly improved, and he will follow up in the outpatient s etting. 2. Diffuse B-cell lymphoma. This is reportedly in remission. He will follow up with his oncologis t as needed. 3. Constipation. The patient has been reinitiated on his regular medications, and this condition h as resolved prior to disposition. 4. History of atrial fibrillation with a permanent pacemaker. No acute issues identified. 5. Dementia. He is stable with regard to this condition. DISPOSITION: The patient will be discharged to [facility] facility for further rehabilitation and management. There are no pending studies. DISCHARGE MEDICATIONS: Please refer to the EMR form. I have not adjusted the patient's previously prescribed home medications to the best of my knowledge, except for the addition of a Decadron taper , which has been ordered at the time of disposition. I spent greater than 35 minutes in the care, coordination, and management of the patient's discharge . /[id number]/MODL
[2017-03-29 11:42] VITALS: BP 125/69; PULSE 65; O2SAT 93
== END 2017-03-29 17:12 | DRG 552 ==
LOC: EDUNIT# → F3E 03-26 00:12
PROVIDERS: ADMIT Internal Medicine; ATTEND Internal Medicine
DX: M54.16 Radiculopathy, lumbar region (principal); K59.00 Constipation, unspecified; F03.90 Unspecified dementia, unspecified severity, without behavioral disturbance, psychotic disturbance, mood disturbance, and anxiety; I48.91 Unspecified atrial fibrillation; I25.10 Atherosclerotic heart disease of native coronary artery without angina pectoris; Z66 Do not resuscitate; Z85.79 Personal history of other malignant neoplasms of lymphoid, hematopoietic and related tissues; Z95.0 Presence of cardiac pacemaker
CPT/HCPCS: 97116-GP; 97162-GP; 97166-GO; 97535-GO; G8978-GP-CK; G8979-GP-CI; G8979-GP-CJ; G8987-GO-CK; G8988-GO-CI; J1100; J1650; Q9967

== ENCOUNTER 2017-04-07 10:53 | Inpatient (IN) | payer OTHER, BC ==
[2017-04-07] MEDS ORDERED: ACETAMINOPHEN 500 MG TAB ONE (11:22)
[2017-04-07] MEDS ORDERED: NS 1,000 ML IV ONE ×3 (11:33→12:50)
[2017-04-07 11:37] LABS: % IMMATURE GRANULYOCYTES 1.5 % (0.0-1.1); ABSOLUTE IMMATURE GRANULOCYTES 0.12 10^3/uL (0.00-0.10); ADD DIFF? NO; ADD MORPH? NO; ADD SCAN? YES; ATYPICAL LYMPHOCYTE FLAG 0 (0-99); FRAGMENT RBC FLAG 0 (0-99); HEMATOCRIT 42.9 % (40.0-51.0); HEMOGLOBIN 14.2 g/dL (13.7-17.5); LEFT SHIFT FLG 60 (0-99); LIPEMIA HEMOLYSIS FLAG 80 (0-99); MEAN CELL HEMOGLOBIN 30.3 pg (27.9-34.1); MEAN CELL HEMOGLOBIN CONCENTR. 33.1 g/dL (32.4-36.7); MEAN CELL VOLUME 91.5 fL (81.5-99.8); MEAN PLATELET VOLUME 9.8 fL (8.7-11.7); PLATELET CLUMPS FLAG 0 (0-99); PLATELET COUNT 187 10^3/uL (150-400); RED BLOOD CELL COUNT 4.69 10^6/uL (4.40-6.38); RED CELL DISTRIBUTION WIDTH 13.4 % (11.5-15.2)
[2017-04-07] MEDS ORDERED: ACETAMINOPHEN 500 MG TAB PO ONE (11:39)
[2017-04-07 11:44] LABS: ANION GAP 10 mEq/L (8-16); CALCIUM 8.9 mg/dL (8.5-10.4); CARBON DIOXIDE 29 mEq/l (22-31); CHLORIDE 91 mEq/L (97-110); CREATININE 0.6 mg/dL (0.7-1.3); GLOMERULAR FILTRATION RATE > 60; GLUCOSE 74 mg/dL (70-100); POTASSIUM 3.8 mEq/L (3.5-5.2); SODIUM 130 mEq/L (134-144)
[2017-04-07 12:21] LABS: SCAN NEGATIVE
[2017-04-07] MEDS ORDERED: LIDOCAINE 2% JELLY 20 ML (UROJECT) ONE (14:12)
[2017-04-07 14:37] LABS: INR 1.06 (0.83-1.16); PROTIME(PATIENT) 13.7 SEC (12.0-15.0)
[2017-04-07 14:38] LABS: APTT 26.7 SEC (23.0-38.0)
[2017-04-07 15:06] LABS: BACTERIA 1+ /hpf (NONE SEEN); COLOR AMBER; LEUKOCYTE ESTERASE,URINE TRACE (NEGATIVE); MUCUS TRACE /lpf (NONE-1+); NITRITE,URINE NEGATIVE (NEGATIVE); RBC,URINE 25-50 /hpf (0-3); WBC,URINE 15-25 /hpf (0-3)
[2017-04-07] MEDS ORDERED: cefTRIAXone 2 GM in D5W 50 ML IV ONE (15:08)
--- NOTE | 2017-04-07 15:16 | EDPHY ---
H & P Time Seen by Provider: 04/07/17 11:43 HPI/ROS: HPI Altered mental status. 82-year-old male by ambulance from [facility]. This patient was seen in our emergency department and admitted to our hospital for back pain and a lumbar radiculopathy. [facility] care and rehabilitation. His states he has been in the jail facility he has had a progressive decline in his mental status. He does have a history of dementia which has been ongoing for 12 years but she states that his dementia and mental status have acutely become significantly worse over the last 5 days to 7 days. She also reports that as of yesterday after his physical therapy appointment he has not been able to walk. He had a Moon catheter placed yesterday. He ripped his Moon catheter out this morning in a confused state and was sent to the emergency department from [facility]. ROS: Unable to obtain. Past medical history: Diffuse B-cell lymphoma, lumbar radiculopathy, dementia, history of coronary artery disease. Social history: Nonsmoker. No alcohol. His is present with him. As above. Physical Exam: General Appearance: Sleepy, opens his eyes. This patient appears generally well -hydrated and well-nourished. Eyes: Pupils equal and round no pallor or injection. No lid edema, erythema or injection. ENT, Mouth: Mucous membranes are moist. The pharyngeal tissues are unremarkable. No edema or swelling. No asymmetry suggestive of abscess. No erythema or exudates. Respiratory: There are no retractions, lungs are clear to auscultation anteriorly with good air movement bilaterally. Cardiovascular: Regular rate and rhythm. No murmur. Gastrointestinal: Abdomen is soft and nontender, no masses, bowel sounds normal. No focal tenderness at McBurney's point. No Maciel sign. Neurological: Motor sensory function is grossly intact. He moves all 4 extremities. Cranial nerves are normal. Skin: Warm and dry, no rashes. Musculoskeletal: Neck is supple and nontender. Extremities are symmetrical. All joints range without pain or impingement. Psychiatric: No agitation. Database: EKG: Imaging: Chest x-ray PA and lateral; pacemaker. Leads appear intact. No obvious infiltrate or acute cardiopulmonary disease process noted. Interpreted by me. Interpreted by me. CT scan of head without contrast: No acute pathology. Results discussed with staff radiologist Dr. Richard Merino. Procedures: Emergency department course: IV placed. Vital signs reviewed. Patient afebrile. Normal saline started with 1-2 L to be given over the next 1-2 hours. Initial attempts at Moon catheter placement failed. Coude tipped Moon catheter was placed successfully at 3:00 p.m. urine obtained. 12:00 p.m., vital signs have normalized. Patient afebrile. Tachycardia resolved. Initial venous lactate 1.9. 3:15 p.m., patient started on IV Rocephin for treatment of urinary tract infection. 3:20 p.m., discussed case with hospitalist Dr. Rausch. He accepts the patient for admission. Patient admitted to the hospitalist service in stable condition. Differential Diagnosis: The differential diagnosis on this patient includes but is not limited to urinary tract infection, urosepsis, dementia, pneumonia. This represents a partial list of diagnoses considered. These considerations are based on history , physical exam, past history, reassessment and diagnostic testing. Smoking Status: Never smoked Constitutional: Initial Vital Signs Temperature (C) 39.2 C H 04/07/17 10:53 Heart Rate 113 H 04/07/17 10:53 Respiratory Rate 22 H 04/07/17 10:53 Blood Pressure 110/66 04/07/17 10:53 O2 Sat (%) 79 L 04/07/17 10:53 O2 Delivery Mode Room Air O2 (L/minute) 5 Allergies/Adverse Reactions: ciprofloxacin [From Cipro] Allergy (Intermediate, Verified 01/26/16 01:54) TENDONITIS Penicillins Allergy (Mild, Verified 01/26/16 01:54) Rash azithromycin [From Zithromax] Allergy (Verified 01/26/16 01:54) Home Medications: Medication Instructions Recorded Acetaminophen [Tylenol ES 500 mg 1,000 mg PO Q8H PRN 04/07/17 (*)] Atorvastatin Calcium [Lipitor 20 20 mg PO HS 04/07/17 mg (*)] Cholecalciferol Vit D3 [Vitamin D3 1,000 units PO BID 04/07/17 (*)] Cyclobenzaprine [Flexeril 10 MG 10 mg PO TID PRN 04/07/17 (*)] Digoxin [Digox] 125 mcg PO DAILY 04/07/17 Latanoprost 0.005% [Xalatan 0.005% 1 drops EACHEYE HS 04/07/17 (*)] Levothyroxine [Synthroid 50 mcg 50 mcg PO DAILY 04/07/17 (*)] Multivitamins [Multivitamin (*)] 1 each PO DAILY 04/07/17 [place]-3 Fatty Acids [Fish Oil 1000 1,000 mg PO DAILY 04/07/17 mg (*)] Polyethylene Glycol 3350 [Miralax 17 gm PO DAILY PRN 04/07/17 17 gm (*)] Propafenone HCl Sr [Rythmol Sr 325 mg PO BID 04/07/17 325mg (*)] Sennosides/Docusate Sodium 1 each PO BID PRN 04/07/17 [Senna-S Tablet] traMADol [Ultram 50 mg (*)] 25 mg PO Q6H PRN 04/07/17 Medical Decision Making - Data Points Laboratory Results: Laboratory Results 04/07/17 11:15 04/07/17 11:15 Microbiology Results: MICROBIOLOGY 04/07/17 15:00 Blood Blood Culture - Preliminary 04/07/17 15:00 Blood Blood Panel (PCR) - Final Escherichia Coli Medications Given: Discontinued Medications Acetaminophen (Tylenol) 1,000 mg PO EDNOW ONE Stop: 04/07/17 11:40 Last Admin: 04/07/17 11:40 Dose: 1,000 mg Enoxaparin Sodium (Lovenox) 70 mg SC BID@0600,1800 CARLOS Stop: 10/04/17 17:49 Last Admin: 04/07/17 19:01 Dose: Not Given Sodium Chloride (Ns) 1,000 mls @ 0 mls/hr IV ONCE ONE PRN Reason: Wide Open Stop: 04/07/17 11:34 Last Admin: 04/07/17 11:35 Dose: 1,000 mls Sodium Chloride (Ns) 1,000 mls @ 0 mls/hr IV ONCE ONE; Wide Open PRN Reason: Protocol Stop: 04/07/17 12:51 Last Admin: 04/07/17 13:00 Dose: 1,000 mls Sodium Chloride (Ns) 1,000 mls @ 0 mls/hr IV ONCE ONE; Wide Open PRN Reason: Protocol Stop: 04/07/17 12:51 Last Admin: 04/07/17 14:26 Dose: Not Given Ceftriaxone Sodium 2 gm/ (Dextrose) 50 mls @ 100 mls/hr IV EDNOW ONE PRN Reason: Protocol Stop: 04/07/17 15:37 Last Admin: 04/07/17 15:25 Dose: 50 mls Sodium Chloride (Ns) 500 mls @ 1,000 mls/hr IV ONCE ONE PRN Reason: Protocol Stop: 04/07/17 16:25 Last Admin: 04/07/17 15:50 Dose: 500 mls Departure - Departure Disposition: [facility] Acute Clinical Impression: Urosepsis, Altered mental status, Confusion Condition: Fair
[2017-04-07] MEDS ORDERED: CEFTRIAXONE 1 GM/DEXTROSE/50 ML BAG IV ONE (15:17)
[2017-04-07] MEDS ORDERED: ONDANSETRON 4 MG/2 ML VIAL IVP PRN (15:35)
[2017-04-07] MEDS ORDERED: ONDANSETRON DISINTEGRATING 4 MG TAB PO PRN (15:35)
[2017-04-07] MEDS ORDERED: LACTULOSE 20 GM/30 ML UDCUP PO PRN (15:37)
[2017-04-07] MEDS ORDERED: MAGNESIUM HYDROXIDE 30 ML UDCUP PO PRN (15:37)
[2017-04-07] MEDS ORDERED: POLYETHYLENE GLYCOL 3350 17 GM PKT PO PRN (15:37)
[2017-04-07] MEDS ORDERED: BISACODYL 10 MG SUPP PR PRN (15:37)
[2017-04-07 15:46] LABS: DIGOXIN 0.7 ng/mL (0.8-2.0)
[2017-04-07 15:54] LABS: BILIRUBIN,TOTAL 1.2 mg/dL (0.1-1.4)
[2017-04-07] MEDS ORDERED: NS 500 ML IV ONE (15:56)
--- NOTE | 2017-04-07 16:45 | PDGENHP ---
History and Physical - Chief Complaint Acute fatigue - History of Present Illness PCP: Dr. Boogie Primary oncologist: Dr. Brown HPI: 86-year-old male presenting with acute lethargy characterized as inability to ambulate during physical therapy with associated confusion, reduced level of responsiveness, acute urinary retention, loose bowel movement. Per patient's , the patient had been rehabilitating well at [facility] when over the last several days began experiencing progressive generalized weakness urinary retention requiring Moon catheter, then removal of Moon catheter traumatically on the evening prior to this presentation. Reportedly not voided since Moon catheter removal and when it was reinserted in our emergency department large volume of dark red urine was evacuated. His also reports that over the past several days he has had poor sleep, resulting in only several hours per night and then daytime fatigue and disorientation. History Information - Allergies/Home Medication List Allergies/Adverse Reactions: ciprofloxacin [From Cipro] Allergy (Intermediate, Verified 01/26/16 01:54) TENDONITIS Penicillins Allergy (Mild, Verified 01/26/16 01:54) Rash azithromycin [From Zithromax] Allergy (Verified 01/26/16 01:54) Home Medications: Acetaminophen [Tylenol ES 500 mg (*)] 1,000 mg PO Q8H PRN 04/07/17 [Last Taken Unknown] Atorvastatin Calcium [Lipitor 20 mg (*)] 20 mg PO HS 04/07/17 [Last Taken Unknown] Cholecalciferol Vit D3 [Vitamin D3 (*)] 1,000 units PO BID 04/07/17 [Last Taken Unknown] Cyclobenzaprine [Flexeril 10 MG (*)] 10 mg PO TID PRN 04/07/17 [Last Taken Unknown] Digoxin [Digox] 125 mcg PO DAILY 04/07/17 [Last Taken Unknown] Latanoprost 0.005% [Xalatan 0.005% (*)] 1 drops EACHEYE HS 04/07/17 [Last Taken Unknown] Levothyroxine [Synthroid 50 mcg (*)] 50 mcg PO DAILY 04/07/17 [Last Taken Unknown] Multivitamins [Multivitamin (*)] 1 each PO DAILY 04/07/17 [Last Taken Unknown] [place]-3 Fatty Acids [Fish Oil 1000 mg (*)] 1,000 mg PO DAILY 04/07/17 [Last Taken Unknown] Polyethylene Glycol 3350 [Miralax 17 gm (*)] 17 gm PO DAILY PRN 04/07/17 [Last Taken Unknown] Propafenone HCl Sr [Rythmol Sr 325mg (*)] 325 mg PO BID 04/07/17 [Last Taken Unknown] Sennosides/Docusate Sodium [Senna-S Tablet] 1 each PO BID PRN 04/07/17 [Last Taken Unknown] traMADol [Ultram 50 mg (*)] 25 mg PO Q6H PRN 04/07/17 [Last Taken Unknown] I have personally reviewed and updated: family history, medical history, social history, surgical history - Past Medical History Additional medical history: diffuse B cell lymphoma (Dx 05/2016, in remission as 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 Dementia. Afib with PPM. CAD with previous PCI Recent admission for lumbar radiculopathy with steroid taper - Surgical History Additional surgical history: PPM placement - Family History Positive for: non-pertinent Additional family history: no recent sick family contacts - Social History Smoking Status: Never smoked Alcohol Use: None Drug Use: None Additional social history: patient currently residing in [facility] Review of Systems ROS: 10pt was reviewed & negative except for what was stated in HPI & below Constitutional: Reports: weakness Cardiac: Reports: edema ( left lower extremity) Gastrointestinal: Reports: other ( loose bowel movement) Genitourinary: Reports: other ( urinary retention) Physical Exam Temp Pulse Resp BP Pulse Ox 37.4 C 80 18 92/48 L 94 04/07/17 12:00 04/07/17 16:09 04/07/17 16:09 04/07/17 16:09 04/07/17 16:09 Constitutional: no apparent distress, not in pain, chronically ill appearing, cachectic, No uncomfortable Eyes: PERRL, anicteric sclera Ears, Nose, Mouth, Throat: no oral mucosal ulcers, other ( tacky mucous membranes) Cardiovascular: systolic murmur ( 1/6 sternum), edema ( left lower extremity), No irregularly irregular, No tachycardia Respiratory: inspiratory crackles ( bilateral bases), No reduced air movement, No expiratory wheeze, No bronchial breath sounds, No respiratory distress Gastrointestinal: normoactive bowel sounds, soft, non-tender abdomen, no palpable masses, No guarding, No distension Genitourinary: no bladder fullness, other ( Moon catheter in place, dark urine) Neurologic: weakness ( right lower extremity minimal movement, patient has more purposeful movement in his left lower extremity), other ( alert awake oriented times 0, patient is responsive to verbal stimuli), No facial droop Psychiatric: not anxious, encephalopathic, poor insight, poor memory, other ( lethargic), No agitated Lab Data & Imaging Review 04/07/17 11:15 04/07/17 11:15 WBC 7.81 10^3/uL (3.80-9.50) 04/07/17 11:15 RBC 4.69 10^6/uL (4.40-6.38) 04/07/17 11:15 Hgb 14.2 g/dL (13.7-17.5) 04/07/17 11:15 Hct 42.9 % (40.0-51.0) 04/07/17 11:15 MCV 91.5 fL (81.5-99.8) 04/07/17 11:15 MCH 30.3 pg (27.9-34.1) 04/07/17 11:15 MCHC 33.1 g/dL (32.4-36.7) 04/07/17 11:15 RDW 13.4 % (11.5-15.2) 04/07/17 11:15 Plt Count 187 10^3/uL (150-400) 04/07/17 11:15 MPV 9.8 fL (8.7-11.7) 04/07/17 11:15 Neut % (Auto) 94.8 % (39.3-74.2) H 04/07/17 11:15 Lymph % (Auto) 1.5 % (15.0-45.0) L 04/07/17 11:15 [place] % (Auto) 0.5 % (4.5-13.0) L 04/07/17 11:15 Eos % (Auto) 1.3 % (0.6-7.6) 04/07/17 11:15 Baso % (Auto) 0.4 % (0.3-1.7) 04/07/17 11:15 Nucleat RBC Rel Count 0.0 % (0.0-0.2) 04/07/17 11:15 Absolute Neuts (auto) 7.40 10^3/uL (1.70-6.50) H 04/07/17 11:15 Absolute Lymphs (auto) 0.12 10^3/uL (1.00-3.00) L 04/07/17 11:15 Absolute Monos (auto) 0.04 10^3/uL (0.30-0.80) L 04/07/17 11:15 Absolute Eos (auto) 0.10 10^3/uL (0.03-0.40) 04/07/17 11:15 Absolute Basos (auto) 0.03 10^3/uL (0.02-0.10) 04/07/17 11:15 Absolute Nucleated RBC 0.00 10^3/uL (0-0.01) 04/07/17 11:15 Immature Gran % 1.5 % (0.0-1.1) H 04/07/17 11:15 Immature Gran # 0.12 10^3/uL (0.00-0.10) H 04/07/17 11:15 PT 13.7 SEC (12.0-15.0) 04/07/17 12:00 INR 1.06 (0.83-1.16) 04/07/17 12:00 APTT 26.7 SEC (23.0-38.0) 04/07/17 12:00 D-Dimer 18.81 ug/mLFEU (0.00-0.50) H 04/07/17 12:00 VBG Lactic Acid 1.9 mmol/L (0.7-2.1) 04/07/17 16:30 Sodium 130 mEq/L (134-144) L 04/07/17 11:15 Potassium 3.8 mEq/L (3.5-5.2) 04/07/17 11:15 Chloride 91 mEq/L (97-110) L 04/07/17 11:15 Carbon Dioxide 29 mEq/l (22-31) 04/07/17 11:15 Anion Gap 10 mEq/L (8-16) 04/07/17 11:15 BUN 15 mg/dL (7-23) 04/07/17 11:15 Creatinine 0.6 mg/dL (0.7-1.3) L 04/07/17 11:15 Estimated GFR > 60 04/07/17 11:15 Glucose 74 mg/dL (70-100) 04/07/17 11:15 Calcium 8.9 mg/dL (8.5-10.4) 04/07/17 11:15 Total Bilirubin 1.2 mg/dL (0.1-1.4) 04/07/17 12:50 TSH 4.160 uIU/mL (0.465-4.680) 04/07/17 11:18 Urine Color TU 04/07/17 14:45 Urine Appearance HAZY 04/07/17 14:45 Urine pH 7.0 (5.0-7.5) 04/07/17 14:45 Ur Specific [place] 1.008 (1.002-1.030) 04/07/17 14:45 Urine Protein 2+ (NEGATIVE) H 04/07/17 14:45 Urine Ketones NEGATIVE (NEGATIVE) 04/07/17 14:45 Urine Blood 3+ (NEGATIVE) H 04/07/17 14:45 Urine Nitrate NEGATIVE (NEGATIVE) 04/07/17 14:45 Urine Bilirubin NEGATIVE (NEGATIVE) 04/07/17 14:45 Urine Urobilinogen 2.0 EU (0.2-1.0) H 04/07/17 14:45 Ur Leukocyte Esterase TRACE (NEGATIVE) H 04/07/17 14:45 Urine RBC 25-50 /hpf (0-3) H 04/07/17 14:45 Urine WBC 15-25 /hpf (0-3) H 04/07/17 14:45 Ur Epithelial Cells TRACE /lpf (NONE-1+) 04/07/17 14:45 Calcium Oxalate Crystal PRESENT /hpf (NONE-1+) 04/07/17 14:45 Urine Bacteria 1+ /hpf (NONE SEEN) H 04/07/17 14:45 Urine Mucus TRACE /lpf (NONE-1+) 04/07/17 14:45 Urine Glucose NEGATIVE (NEGATIVE) 04/07/17 14:45 Digoxin 0.7 ng/mL (0.8-2.0) L 04/07/17 11:18 Visualized and Interpreted Chest x-ray results: Yes Chest X-Ray results: other ( bibasilar airspace disease, similar to previous chest x-rays) Assessment & Plan Assessment: 86-year-old male presenting with acute on chronic encephalopathy in the setting of possible urinary tract infection, hyponatremia Plan: 1. Encephalopathy. Acute on chronic, new problem this provider, further workup indicated. Potential etiologies include infection, hypoxia, recurrent DLBCL, resulting in global brain dysfunction characterized as confusion, poor level of responsiveness, disorientation, all of which is an acute change from his baseline which is normally verbally communicative - perform infectious workup as outlined below - continue on supplemental oxygen and reassess - evaluate for recurrent malignancy with CT of the abdomen pelvis 2. Systemic inflammatory response syndrome. Evidenced by fever, tachycardia, tachypnea, hypotension with systolic blood pressure 82 during this encounter, unclear if this is secondary to urinary tract infection or recurrent malignancy - if it is determined that this is evidence of autonomic dysregulation in the setting of underlying infection, then the patient should be reached characterized as having sepsis present on admission - continue empiric IV antibiotics - continue empiric IV fluids, discussed with Dr. Ivan Martins, he has reported to me that the patient has received 2.5 L will receive a repeat venous lactic acid at this time for reassessment - given patient's high risk of decompensation, admit to step-down unit - send urine culture, send blood culture, CT angiogram of the chest abdomen and pelvis to evaluate for recurrent malignancy versus pulmonary embolism 3. Hyponatremia. Acute on chronic, most recent level 132 on 03/27/2017, most likely secondary to hypovolemia in the setting of above - provide IV normal saline and repeat in a.m. 4. Diffuse large B-cell lymphoma. Currently in remission per review of outside records, has not received treatment since October 2016 - reimage determine whether he has recurrence of disease 5. Lumbar radiculopathy. Review of outside records from 03/29/2017 discharge summary by Jayla Antonio, reports the patient has radiographic evidence of L3-L4 stenosis resulting in pain, receiving dexamethasone taper and admission to [facility] at that time - patient's lower extremity exam is difficult to interpret as his level of cooperation is poor, monitor for signs of cord compression notably lower extremity paralysis, bowel retention - the patient currently has been having loose bowel movements and does not have hyper reflexia on neurologic exam, do not believe he requires an MRI of the spine at this time - monitor neuro checks 6. Urinary retention. Acute, potentially secondary to urinary tract infection, continue Moon catheter, initiate Flomax when patient systolic blood pressure has stabilized 7. Possible urinary tract infection. Complicated by definition male, occurred prior to the patient receiving a Moon catheter, potentially secondary to urinary retention or the cause there of - urinalysis demonstrates 50-25 white blood cells, trace leukocyte esterase, urine culture sent - empirically received IV ceftriaxone Diet. NPO until ASSISTANT ACCOUNT MANAGER eval Prophylaxis. High risk patient, Lovenox 40 Code. Do not resuscitate per patient, his is MPOA Disposition. Anticipated discharge uncertain this time anticipated length stay is greater than 48 hours warranting inpatient admission status for acute on chronic encephalopathy with high risk comorbid systemic inflammatory response syndrome and possibly sepsis, history of diffuse large B-cell lymphoma requiring further workup as outlined above. 40 minutes of bedside critical care time spent with the patient and his , as well as coordinating care with the emergency department provider and the nursing staff, patient remains critically ill with high risk of worsening morbidity and/or mortality.
[2017-04-07] MEDS ORDERED: OLANZapine DISINTEGR 5 MG TAB PO PRN (16:46)
[2017-04-07] MEDS ORDERED: IOPAMIDOL (ISOVUE 370) 100 ML BTL IV ONE (16:57)
[2017-04-07] MEDS ORDERED: ENOXAPARIN 80 MG/0.8 ML SYR SC SCH (17:50)
[2017-04-07] MEDS: MEROPENEM 1 GM in NS 100 ML IV SCH (18:34)
[2017-04-07] MEDS: NS W/ 20 KCl/L 1,000 ML IV SCH (18:34)
[2017-04-07] MEDS: ENOXAPARIN 60 MG/0.6 ML SYR SC SCH (18:36)
[2017-04-07] MEDS: VANCOMYCIN HCL/NORMAL SALINE 250 ML IV SCH (19:34)
[2017-04-07] MEDS: MELATONIN 3 MG TAB PO SCH (22:02)
[2017-04-07] MEDS: ATORVASTATIN CALCIUM 20 MG TAB PO SCH (22:03)
[2017-04-07] MEDS: CHOLECALCIFEROL VIT D3 1,000 UNITS TAB PO SCH (22:03)
[2017-04-07] MEDS: LATANOPROST 0.005% 2.5 ML OPHT DROPS EACHEYE SCH (22:03)
[2017-04-07] MEDS: SENNOSIDES/DOCUSATE SODIUM TAB PO SCH (22:04)
[2017-04-07] MEDS: PROPAFENONE HCL SR 325 MG CAP PO SCH (22:04)
[2017-04-08] MEDS: MEROPENEM 1 GM in NS 100 ML IV SCH ×3 (02:00→17:56)
[2017-04-08 05:28] LABS: % IMMATURE GRANULYOCYTES 1.3 % (0.0-1.1); ABSOLUTE IMMATURE GRANULOCYTES 0.24 10^3/uL (0.00-0.10); ADD DIFF? NO; ADD MORPH? NO; ADD SCAN? NO; ATYPICAL LYMPHOCYTE FLAG 0 (0-99); FRAGMENT RBC FLAG 0 (0-99); HEMATOCRIT 34.4 % (40.0-51.0); HEMOGLOBIN 11.5 g/dL (13.7-17.5); LEFT SHIFT FLG 60 (0-99); LIPEMIA HEMOLYSIS FLAG 80 (0-99); MEAN CELL HEMOGLOBIN 30.5 pg (27.9-34.1); MEAN CELL HEMOGLOBIN CONCENTR. 33.4 g/dL (32.4-36.7); MEAN CELL VOLUME 91.2 fL (81.5-99.8); MEAN PLATELET VOLUME 9.4 fL (8.7-11.7); PLATELET CLUMPS FLAG 10 (0-99); PLATELET COUNT 145 10^3/uL (150-400); RED BLOOD CELL COUNT 3.77 10^6/uL (4.40-6.38); RED CELL DISTRIBUTION WIDTH 13.9 % (11.5-15.2)
[2017-04-08 05:42] LABS: ALANINE AMINOTRANSFERASE 34 IU/L (21-72); ALBUMIN 2.1 g/dL (3.5-5.0); ALKALINE PHOSPHATASE 65 IU/L (38-126); ANION GAP 8 mEq/L (8-16); ASPARTATE AMINOTRANSFERASE 29 IU/L (17-59); BILIRUBIN,TOTAL 0.9 mg/dL (0.1-1.4); CALCIUM 7.4 mg/dL (8.5-10.4); CARBON DIOXIDE 22 mEq/l (22-31); CHLORIDE 104 mEq/L (97-110); CREATININE 0.5 mg/dL (0.7-1.3); GLOMERULAR FILTRATION RATE > 60; GLUCOSE 67 mg/dL (70-100); LACTATE DEHYDROGENASE 597 IU/L (313-618); POTASSIUM 3.4 mEq/L (3.5-5.2); SODIUM 134 mEq/L (134-144)
[2017-04-08] MEDS: ENOXAPARIN 60 MG/0.6 ML SYR SC SCH (05:42)
[2017-04-08] MEDS: VANCOMYCIN HCL/NORMAL SALINE 250 ML IV SCH (05:42)
[2017-04-08] MEDS ORDERED: ENOXAPARIN 40 MG/0.4 ML SYR SC SCH (09:00)
[2017-04-08] MEDS: SENNOSIDES/DOCUSATE SODIUM TAB PO SCH ×2 (09:36→19:35)
[2017-04-08] MEDS: OMEGA-3 FATTY ACIDS 1,000 MG CAP PO SCH (09:36)
[2017-04-08] MEDS: CHOLECALCIFEROL VIT D3 1,000 UNITS TAB PO SCH ×2 (09:36→19:35)
[2017-04-08] MEDS: PROPAFENONE HCL SR 325 MG CAP PO SCH ×2 (09:36→19:34)
[2017-04-08] MEDS: DIGOXIN 125 MCG TAB PO SCH (09:36)
[2017-04-08] MEDS: MULTIVITAMINS 1 EACH TAB PO SCH (09:37)
[2017-04-08] MEDS: LEVOTHYROXINE 50 MCG TAB PO SCH (09:37)
[2017-04-08] MEDS: NS W/ 20 KCl/L 1,000 ML IV SCH (10:59)
[2017-04-08] MEDS: ACETAMINOPHEN 325 MG TAB PO PRN ×2 (11:15→19:34)
[2017-04-08] MEDS ORDERED: NS 500 ML IV ONE (12:06)
--- NOTE | 2017-04-08 13:33 | HOSPPROG ---
Hospitalist Progress Note Assessment/Plan: Sepsis secondary to urinary source - BCx growing E coli. GNR's on UCx. Lactate nl. BP's a bit low, improved to >100 sbp after fluid bolus and albumin. No pressors. Some consideration given to HCAP given b/l pulmonary infiltrates, but he has no cough, CP or SOB. Will d/c Vancomycin. Cont Meropenem for now, await UCx and sensitivities, tailor atbx as able. Will discuss with ID once sensitivities back to determine DOT and most appropriate atbx choice for ongoing therapy. If it's Levaquin sensitive, could be a candidate for oral therapy vs PICC placement on ongoing IV atbx. Urinary retention - Moon in place. Encephalopathy - pt has h/o dementia, but acute mental status changes in setting of infection Hyponatremia - Na normalized with NS Petechial rash - plts dropped, but still >100. Suspect septic emboli. Consider echo. ?PE - reviewed with universal grinder set up operator and radiology, this is sub-segmental, not likely clinically significant. Pt had GI bleeding and had to stop Xarelto when he was on it in the past for DVT in setting of B cell lymphoma. LE u/s neg for DVT. Will d/c therapeutic Lovenox, change to pplx dose only. H/O B cell lymphoma DVT PPLX - LMWH DNR Dispo - cont inpt / ICU Subjective: Pt is pleasantly demented, confused. Unable to give accurate history. No fevers. Objective: Vital Signs Temp Pulse Resp BP Pulse Ox 36.4 C 86 17 82/42 L 96 04/08/17 07:39 04/08/17 12:00 04/08/17 12:00 04/08/17 12:00 04/08/17 12:00 Laboratory Results 04/08/17 05:00 04/08/17 05:00 04/07/17 04/08/17 04/09/17 05:59 05:59 05:59 Intake Total 3873 Output Total 2250 Balance 1623 PT 13.7 SEC (12.0-15.0) 04/07/17 12:00 INR 1.06 (0.83-1.16) 04/07/17 12:00 - Physical Exam Constitutional: no apparent distress Eyes: PERRL Ears, Nose, Mouth, Throat: moist mucous membranes Cardiovascular: regular rate and rhythym Respiratory: no respiratory distress, inspiratory crackles Gastrointestinal: normoactive bowel sounds, soft, non-tender abdomen Skin: warm Psychiatric: poor insight, poor memory ICD10 Worksheet Patient Problems: Problems Problem Status Onset Altered mental status Acute Confusion Acute Ataxia Acute Back pain Acute
--- NOTE | 2017-04-08 14:51 | GCON ---
[f rep st] CONSULTATION PULMONARY CRITICAL CARE CONSULTATION. DATE OF CONSULTATION: 04/08/2017 REASON FOR CONSULTATION: Sepsis. HISTORY: The patient is an 86-year-old, who was brought to the hospital secondary to increasing wea kness and confusion, and fever. He was hypotensive on admission. Venous lactate however was not si gnificantly elevated. He was found to have significant urinary retention. A Moon catheter was yoel deangelo yielding at least a liter of urine. Urinalysis was positive for white blood cells and red cells . Subsequent blood cultures have grown E coli, consistent with urosepsis. Other studies done in [facility] emergency room included a CT angiogram of the chest. This showed bibasilar atelectasis or infiltr ate, worse on the left compared to the right, and one small vessel on CT angiogram that possibly has a nonocclusive clot. This is nonspecific. The patient was given intravenous fluids and admitted t o the intensive care unit. PAST MEDICAL HISTORY: Remarkable for chronic, relatively severe back pain. He was recently [facility] for [facility] and [facility]. He became progressively worse at the [facility]. 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 Brown, lumbar radiculopathy, dementia, and coronary artery disease. MEDICATIONS: On admission included levothyroxine, Rythmol, Lipitor, digoxin 0.125, and p.r.n. medic ations including Flexeril. DRUG ALLERGIES: Ciprofloxacin, penicillins, azithromycin. SOCIAL HISTORY: The patient is , with a very supportive . He does not smoke cigarettes. He drinks alcohol occasionally. 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 He has been in the [place] area for approximately 20 years. He has a son who lives in [facility]. FAMILY HISTORY: Noncontributory. REVIEW OF SYSTEMS: A 10-point review of systems is difficult to obtain. He complains of generalize d muscle pain and discomfort, back pain, no significant shortness of breath, no anterior chest pain, n o GI symptoms. There is a previous history of deep venous thrombosis associated with his B-cell lym phoma. He was on anticoagulation in the past. This was complicated by bleeding. He uses a walker recently. PHYSICAL EXAMINATION: GENERAL: Reveals an elderly gentleman, who is somewhat confused, and has dif ficulty answering questions. He is sitting in a chair. VITAL SIGNS: Blood pressure is 85/45, hear t rate 86, with sinus rhythm on the monitor. Respiratory rate is 18. On 2 L saturations are 96%. He is afebrile, with a maximum temperature of 39.2. HEENT: Unremarkable for lymphadenopathy or thy romegaly. Nasal cannula is in place. Mucous membranes are somewhat dry. There is no jugular venou s distention, lymphadenopathy, or thyromegaly. CHEST: Reveals decreased breath sounds bilaterally, with some rales at both bases. There are no E to A changes or significant bronchial findings. The re are no rhonchi. There are no wheezes. HEART: Regular in rate and rhythm. There is a soft syst olic murmur, no obvious gallop. ABDOMEN: Soft and nontender. Bowel sounds are present, but mildly reduced. A Moon catheter is in place with excellent urine output since admission. As of this mor gogo, he had 3875 mL in, 2250 out. The extremities are remarkable for trace plus peripheral edema b ilaterally. There is a petechial rash over the feet. NEUROLOGIC: Nonfocal. He moves all extremit ies equally and reports normal sensation. He is slow to answer questions and vague regarding some o f his responses. He is oriented x2. DATABASE: CT scan of the chest is as described above, with bibasilar infiltrates or atelectasis, an d a small incidental possible area of pulmonary artery thrombosis in a single distal subsegmental ar katharine. CT scan of the head shows only atrophy, with no evidence of acute disease. There are some mi crovascular ischemic changes and old lacunar infarcts. LABORATORY: White blood cell count is 18,000, hematocrit 34, platelets 145,000. PT and PTT were no rmal on admission. Venous blood lactate was 1.9 on admission, with 1.0 on repeat. Sodium is 134, p otassium 3.4. CO2 is 22, with an anion gap of 8. BUN is 12, with a creatinine 0.6, glucose 67, osman cium 7.4. Liver function studies are normal, albumin 2.1, TSH 4.1. Urinalysis was positive for whi te cells, as well as red cells, and bacteria. Digoxin level on admission was 0.7. ASSESSMENT: 1. Sepsis. This was associated with hypotension, and blood pressures remain borderline. He is req uiring more fluids, as well as colloid. He has not required pressors. Lactate was not elevated. T he source is presumably from his urine, and associated with E coli bacteremia. Pneumonia seems less likely, despite the CT scan findings, as he has had no pulmonary symptoms, and denies cough, mucus, or shortness of breath. If these changes are indicative of pneumonia, he will be adequately covere d for this by the current antibiotics. With E coli bacteremia, vancomycin would not appear to be ne eded and can be stopped. Fluids will be given. A PICC line will be needed. 2. Possible small pulmonary embolism. I feel that this is incidental. A lower extremity venous Do ppler ultrasound was ordered and is negative for evidence of DVT. With his previous complications f rom full-dose anticoagulation, it would be appropriate to stop treatment doses of Lovenox at this ti me and proceed only with prophylactic Lovenox. 3. Abnormal mental status/encephalopathy. This is multifactorial and related to his known dementia , as well as toxic/metabolic factors associated with acute infection and sepsis. 4. Urinary retention. A Moon catheter is in place. Urologic consultation will be needed. 5. History of B-cell lymphoma in the past. Apparently, this is not an active issue. 6. History of coronary artery disease. PLAN AND RECOMMENDATIONS: The patient will be kept in the intensive care unit. Blood pressure will be monitored. Appropriate fluids will be continued, with Plasmanate as needed. Chest x-ray and la boratory will be followed. Full-dose anticoagulation will be stopped and prophylactic anticoagulati on continued. Antibiotics will be adjusted based on the sensitivities of his E coli, when known. A ppropriate pain management will be maintained. Further plans and recommendations will be made based on his progress over the next 12-24 hours. /[id number]/MODL
[2017-04-08] MEDS ORDERED: ALBUMIN 5% 250 ML BOTTLE IV ONE (18:01)
[2017-04-08] MEDS ORDERED: ALBUMIN 5% 250 ML IV ONE (18:30)
[2017-04-08] MEDS: ATORVASTATIN CALCIUM 20 MG TAB PO SCH (19:34)
[2017-04-08] MEDS: MELATONIN 3 MG TAB PO SCH (19:38)
[2017-04-08] MEDS: LATANOPROST 0.005% 2.5 ML OPHT DROPS EACHEYE SCH (19:39)
[2017-04-09] MEDS: ACETAMINOPHEN 325 MG TAB PO PRN ×3 (01:32→20:48)
[2017-04-09] MEDS: MEROPENEM 1 GM in NS 100 ML IV SCH ×3 (01:33→17:27)
[2017-04-09] MEDS: NS W/ 20 KCl/L 1,000 ML IV SCH ×2 (01:50→14:50)
[2017-04-09] MEDS ORDERED: oxyCODONE IR 5 MG TAB PO PRN (03:30)
[2017-04-09 06:35] LABS: % IMMATURE GRANULYOCYTES 1.4 % (0.0-1.1); ABSOLUTE IMMATURE GRANULOCYTES 0.18 10^3/uL (0.00-0.10); ADD DIFF? NO; ADD MORPH? NO; ADD SCAN? NO; ATYPICAL LYMPHOCYTE FLAG 0 (0-99); FRAGMENT RBC FLAG 0 (0-99); HEMATOCRIT 33.7 % (40.0-51.0); HEMOGLOBIN 11.1 g/dL (13.7-17.5); LEFT SHIFT FLG 30 (0-99); LIPEMIA HEMOLYSIS FLAG 80 (0-99); MEAN CELL HEMOGLOBIN 30.5 pg (27.9-34.1); MEAN CELL HEMOGLOBIN CONCENTR. 32.9 g/dL (32.4-36.7); MEAN CELL VOLUME 92.6 fL (81.5-99.8); MEAN PLATELET VOLUME 9.4 fL (8.7-11.7); PLATELET CLUMPS FLAG 0 (0-99); PLATELET COUNT 143 10^3/uL (150-400); RED BLOOD CELL COUNT 3.64 10^6/uL (4.40-6.38); RED CELL DISTRIBUTION WIDTH 13.9 % (11.5-15.2)
[2017-04-09 06:42] LABS: POTASSIUM 3.1 mEq/L (3.5-5.2)
[2017-04-09 06:43] LABS: ANION GAP 5 mEq/L (8-16); CALCIUM 7.9 mg/dL (8.5-10.4); CARBON DIOXIDE 26 mEq/l (22-31); CHLORIDE 102 mEq/L (97-110); CREATININE 0.5 mg/dL (0.7-1.3); GLOMERULAR FILTRATION RATE > 60; GLUCOSE 87 mg/dL (70-100); MAGNESIUM 1.6 mg/dL (1.6-2.3); SODIUM 133 mEq/L (134-144)
[2017-04-09] MEDS ORDERED: PROTOCOL K PHOSPHATE 1 DOSE IV PRN (08:05)
[2017-04-09] MEDS ORDERED: PROTOCOL POTASSIUM 1 DOSE MISC PRN (08:05)
[2017-04-09] MEDS: PROPAFENONE HCL SR 325 MG CAP PO SCH ×2 (08:22→20:49)
[2017-04-09] MEDS: OMEGA-3 FATTY ACIDS 1,000 MG CAP PO SCH (08:22)
[2017-04-09] MEDS: DIGOXIN 125 MCG TAB PO SCH (08:22)
[2017-04-09] MEDS: CHOLECALCIFEROL VIT D3 1,000 UNITS TAB PO SCH ×2 (08:22→20:48)
[2017-04-09] MEDS: LEVOTHYROXINE 50 MCG TAB PO SCH (08:22)
[2017-04-09] MEDS: ENOXAPARIN 40 MG/0.4 ML SYR SC SCH (08:22)
[2017-04-09] MEDS: MULTIVITAMINS 1 EACH TAB PO SCH (08:22)
[2017-04-09] MEDS: SENNOSIDES/DOCUSATE SODIUM TAB PO SCH ×2 (08:22→20:48)
[2017-04-09] MEDS ORDERED: POTASSIUM CL 10 MEQ TAB PO ONE ×2 (08:45→18:58)
[2017-04-09] MEDS ORDERED: ENOXAPARIN 60 MG/0.6 ML SYR SC SCH (09:00)
[2017-04-09] MEDS ORDERED: PROTOCOL CALCIUM 1 DOSE IV PRN (09:30)
[2017-04-09] MEDS ORDERED: PROTOCOL MAGNESIUM 1 DOSE IV PRN (09:30)
[2017-04-09] MEDS ORDERED: MAGNESIUM SULF 1 GM/DEXTROSE 100 ML IV ONE ×2 (09:53→10:17)
[2017-04-09] MEDS ORDERED: POTASSIUM CL 20 MEQ PKT PO ONE (10:00)
[2017-04-09 10:28] LABS: IONIZED CALCIUM 1.06 MMOL/L (1.12-1.30)
[2017-04-09] MEDS ORDERED: CALCIUM GLUCONATE 50 ML IV ONE (10:51)
--- NOTE | 2017-04-09 10:58 | HOSPPROG ---
Hospitalist Progress Note Assessment/Plan: Sepsis secondary to ESBL E coli from urinary source - BCxs with E coli and ESBL E coli on UCx. Lactate nl. No pressors needed. -Cont Meropenem, Vanc d/c'd yesterday -repeat BCx's today -will need PICC -ID consulted to assist with mechanical design technician atbx needs / DOT Urinary retention - Moon in place. Encephalopathy - pt has h/o dementia, but acute mental status changes in setting of infection Hyponatremia - Na normalized with NS Petechial rash - plts dropped, but still >100. Query septic emboli? Consider echo. Will review with ID. ?PE - reviewed with cone baker machine and radiology, this is sub-segmental, not likely clinically significant. Pt had GI bleeding and had to stop Xarelto when he was anticoagulated in the past for DVT in setting of B cell lymphoma. LE u/ s neg for DVT. Will d/c therapeutic Lovenox, change to pplx dose only. H/O B cell lymphoma DVT PPLX - LMWH DNR Dispo - cont inpt / ICU Subjective: Pt confused, but comfortable. Denies pain. No fevers. Objective: Vital Signs Temp Pulse Resp BP Pulse Ox 36.4 C 90 21 H 119/98 H 93 04/09/17 07:40 04/09/17 07:40 04/09/17 07:40 04/09/17 07:40 04/09/17 07:40 Laboratory Results 04/09/17 06:15 04/09/17 06:15 04/08/17 04/09/17 04/10/17 05:59 05:59 05:59 Intake Total 3873 3013 Output Total 2250 950 Balance 1623 2063 PT 13.7 SEC (12.0-15.0) 04/07/17 12:00 INR 1.06 (0.83-1.16) 04/07/17 12:00 - Physical Exam Constitutional: no apparent distress Eyes: PERRL Ears, Nose, Mouth, Throat: moist mucous membranes Cardiovascular: regular rate and rhythym Respiratory: no respiratory distress Gastrointestinal: normoactive bowel sounds, soft, non-tender abdomen Skin: warm Musculoskeletal: full muscle strength Psychiatric: poor memory ICD10 Worksheet Patient Problems: Problems Problem Status Onset Altered mental status Acute Confusion Acute ESBL (extended spectrum beta-lactamase) producing bacteria infection Acute ~04/18 Ataxia Acute Back pain Acute
[2017-04-09] MEDS ORDERED: K PHOS 10 MMOL in D5W 250 ML IV ONE (12:00)
--- NOTE | 2017-04-09 13:35 | PDINTPN ---
Store Clerk Checker Progress Note Assessment/Plan: Assessment: Urosepsis, with bacteremia. Positive ESBL. On meropenem. Urinary retention: Moon catheter in place. Possible pneumonia: Clinically this seems unlikely however he does have retrocardiac atelectasis or infiltrate. No signs or symptoms of pneumonia. Dementia, confusion, agitation. Not unexpected. May benefit from Haldol? Weakness/failure to thrive. Multifactorial, but recent decline probably related to infection. History of coronary artery disease, previous B-cell lymphoma, etc. DVT prophylaxis: Enoxaparin. GI prophylaxis: Eating Plan: Continue antibiotics. Continue present care in the intensive care unit. Will add p.r.n. Haldol. Blood cultures repeated today. Infectious Disease to evaluate. Maybe long-term anti biotics. Will need Urology consultation, least as an outpatient. Moon to remain in place for now. Follow laboratory, chest x-ray intermittently. Subjective: Up in chair. Confused, little agitated. Oriented to person only. Denies pain , denies shortness of breath Objective: Vital Signs Temp Pulse Resp BP Pulse Ox 36.3 C 116 H 21 H 119/55 L 97 04/09/17 12:00 04/09/17 12:00 04/09/17 12:00 04/09/17 12:00 04/09/17 12:00 Laboratory Results 04/09/17 06:15 04/09/17 06:15 04/08/17 04/09/17 04/10/17 05:59 05:59 05:59 Intake Total 3873 3013 Output Total 2250 950 Balance 1623 2063 PT 13.7 SEC (12.0-15.0) 04/07/17 12:00 INR 1.06 (0.83-1.16) 04/07/17 12:00 Laboratory Tests 04/09/17 04/09/17 06:15 10:22 Calcium 7.9 L Ionized Calcium 1.06 L Phosphorus 2.0 L Magnesium 1.6 CXR: Left lower lobe retrocardiac atelectasis/infiltrate. Increased vascular markings. Physical Exam - Physical Exam General Appearance: other (In chair, confused) EENT: PERRL/EOMI, other (Nasal cannula 2 L) Neck: normal inspection (No JVD) Respiratory: lungs clear (Anteriorly), decreased breath sounds (At bases), rales (Primarily at left base, few in right), No rhonchi, No wheezing Cardiac/Chest: regular rate, rhythm (Paced) Abdomen: normal bowel sounds, non-tender, soft Male Genitalia: other (Moon catheter in place: Adequate urine output) Skin: normal color, warm/dry Extremities: pedal edema (Trace +) Neuro/Psych: no motor/sensory deficits (Nonfocal, moves all extremities), disoriented to place, disoriented to time, No cognition abnormalities (Very confused, underlying dementia) ICD10 Worksheet Patient Problems: Problems Problem Status Onset ESBL (extended spectrum beta-lactamase) producing bacteria infection Acute ~04/18 Ataxia Acute Back pain Acute Altered mental status Acute Confusion Acute
[2017-04-09] MEDS: HALOPERIDOL LACT 5 MG/ML INJ IVP PRN (14:48)
[2017-04-09 18:11] LABS: POTASSIUM 6.4 mEq/L (3.5-5.2)
[2017-04-09 18:35] LABS: POTASSIUM 3.4 mEq/L (3.5-5.2)
--- NOTE | 2017-04-09 18:51 | GCON ---
[f rep st] CONSULTATION INPATIENT INFECTIOUS DISEASE CONSULTATION REFERRING PHYSICIAN: Thelma Cuadra MD REASON FOR REFERRAL: E coli bacteremia with urinary tract infection. HISTORY OF PRESENT ILLNESS: Patient is an 86-year-old male, who was admitted to [facility] on 04/07/2017 through the emergency room secondary to complaint of acute fatigue. The patient had problems with urinary retention, and a Moon catheter placement in the emergency room revealed a large volume of urine. Ultimately, it was determined that the patient had urinary tract infection secondary to E coli and a positive E coli culture in his blood. He was treated initially with casey penem 1 g IV q.8 hours. He remains on this treatment. He presented with a fever of 39.2. He has b een afebrile since. Patient currently is resting in his hospital room. He is confused and demented , but this is somewhat baseline. PAST MEDICAL HISTORY: 1. B-cell lymphoma. 2. Dementia. 3. Atrial fibrillation. 4. Coronary artery disease. PAST SURGICAL HISTORY: Status post pacer placement. ANTIBIOTIC: Meropenem. ALLERGIES: Patient is allergic to fluoroquinolones, penicillins, and macrolides. SOCIAL HISTORY: The patient currently is residing at [facility]. No history of tobacco use. No al cohol or drug use. FAMILY HISTORY: Reviewed but noncontributory. REVIEW OF SYSTEMS: Other than that detailed above in the History of Present Illness, comprehensive 10-system review is negative. PHYSICAL EXAMINATION: VITAL SIGNS: Temperature maximum is 37.4, temperature current is 36.7, heart rate is 96, respiratory rate is 20, blood pressure is 110/90. GENERAL: The patient is a well-form ed, well-nourished elderly male in no acute distress. He is confused. He is not oriented, although he is alert. He is in a pleasant demeanor. HEENT: Normocephalic for age. Atraumatic. No sclera l icterus. No oral lesion or drainage from the nares. Eyes: Lids and conjunctivae within normal l imits. Pupils equal and round bilaterally. NECK: Supple. No meningismus. LUNGS: Clear to auscu ltation bilaterally with good effort. HEART: Regular rate but irregular rhythm. No murmur, rub, o r gallop noted. No significant peripheral edema. SKIN: Warm and dry to the touch. No rash or les ion seen. MUSCULOSKELETAL: No muscle tenderness is noted. No joint line effusion or arthritis is seen. LABORATORY DATA: The patient has a CBC dated 04/09/2017, which shows a white blood cell count of 12 .5, hemoglobin 11.1, hematocrit of 33.7, and a platelet count of 143. Differential is left-shifted with 88% segmented neutrophils. Serum chemistries on 04/09/2017, show a sodium of 133, potassium of 3.1, chloride of 102, bicarbonate of 26, BUN of 16, creatinine of 0.5. MICROBIOLOGIC DATA: Patient has blood cultures dated 04/07/2017, show 1/2 sets positive for E coli. Urine culture dated 04/07/2017 is growing ESBL E coli sensitive to meropenem and nitrofurantoin on ly. ASSESSMENT: Bacteremia and sepsis secondary to urinary tract infection due to urinary retention. I solate in the urine is an extended spectrum beta lactamase Escherichia coli. He is on the correct t reatment with meropenem. Plan to continue treatment for 14 days post blood culture clearance. PLAN: 1. Continue meropenem. 2. Follow clinical course and laboratory data. /[id number]/MODL
[2017-04-09] MEDS: MELATONIN 3 MG TAB PO SCH (20:48)
[2017-04-09] MEDS: ATORVASTATIN CALCIUM 20 MG TAB PO SCH (20:48)
[2017-04-09] MEDS: LATANOPROST 0.005% 2.5 ML OPHT DROPS EACHEYE SCH (23:59)
[2017-04-10] MEDS: MEROPENEM 1 GM in NS 100 ML IV SCH (02:46)
[2017-04-10 05:18] LABS: % IMMATURE GRANULYOCYTES 2.4 % (0.0-1.1); ABSOLUTE IMMATURE GRANULOCYTES 0.29 10^3/uL (0.00-0.10); ADD DIFF? NO; ADD MORPH? NO; ADD SCAN? NO; ATYPICAL LYMPHOCYTE FLAG 0 (0-99); FRAGMENT RBC FLAG 0 (0-99); HEMATOCRIT 36.2 % (40.0-51.0); HEMOGLOBIN 12.3 g/dL (13.7-17.5); IONIZED CALCIUM 1.07 MMOL/L (1.12-1.30); LEFT SHIFT FLG 60 (0-99); LIPEMIA HEMOLYSIS FLAG 90 (0-99); MEAN CELL HEMOGLOBIN 30.6 pg (27.9-34.1); MEAN PLATELET VOLUME 9.5 fL (8.7-11.7); PLATELET CLUMPS FLAG 10 (0-99); PLATELET COUNT 146 10^3/uL (150-400); RED BLOOD CELL COUNT 4.02 10^6/uL (4.40-6.38); RED CELL DISTRIBUTION WIDTH 13.7 % (11.5-15.2)
[2017-04-10 05:50] LABS: ALANINE AMINOTRANSFERASE 44 IU/L (21-72); ALBUMIN 2.4 g/dL (3.5-5.0); ALKALINE PHOSPHATASE 85 IU/L (38-126); ANION GAP 4 mEq/L (8-16); ASPARTATE AMINOTRANSFERASE 33 IU/L (17-59); BILIRUBIN,TOTAL 1.1 mg/dL (0.1-1.4); CALCIUM 8.3 mg/dL (8.5-10.4); CARBON DIOXIDE 26 mEq/l (22-31); CHLORIDE 98 mEq/L (97-110); CREATININE 0.4 mg/dL (0.7-1.3); GLOMERULAR FILTRATION RATE > 60; GLUCOSE 83 mg/dL (70-100); MAGNESIUM 1.5 mg/dL (1.6-2.3); POTASSIUM 3.5 mEq/L (3.5-5.2); SODIUM 128 mEq/L (134-144); TOTAL PROTEIN 4.6 g/dL (6.3-8.2)
[2017-04-10] MEDS ORDERED: POTASSIUM CL 10 MEQ TAB PO ONE ×2 (06:43→10:00)
[2017-04-10] MEDS ORDERED: MAGNESIUM SULF 1 GM/DEXTROSE 100 ML IV ONE (07:32)
[2017-04-10] MEDS: ENOXAPARIN 40 MG/0.4 ML SYR SC SCH (09:38)
[2017-04-10] MEDS: OMEGA-3 FATTY ACIDS 1,000 MG CAP PO SCH (09:38)
[2017-04-10] MEDS: PROPAFENONE HCL SR 325 MG CAP PO SCH ×2 (09:38→20:22)
[2017-04-10] MEDS: MULTIVITAMINS 1 EACH TAB PO SCH (09:38)
[2017-04-10] MEDS: LEVOTHYROXINE 50 MCG TAB PO SCH (09:38)
[2017-04-10] MEDS: SENNOSIDES/DOCUSATE SODIUM TAB PO SCH ×2 (09:39→20:22)
[2017-04-10] MEDS: DIGOXIN 125 MCG TAB PO SCH (09:39)
[2017-04-10] MEDS: CHOLECALCIFEROL VIT D3 1,000 UNITS TAB PO SCH ×2 (09:39→20:22)
--- NOTE | 2017-04-10 09:50 | HOSPPROG ---
Hospitalist Progress Note Assessment/Plan: Sepsis secondary to ESBL E coli from urinary source - BCxs and UCx with ESBL E coli. Lactate nl. Hemodynamically stable. No pressors needed. -Change to Erta per ID, DOT 2 weeks from date of neg BCx, stop date 04/23. -repeat BCx's 04/09 NGTD x24 hrs -will need PICC Urinary retention - Non-obstructing nephrolithiasis noted. No hydro. Moon in place. Likely continue until urology f/u. Encephalopathy - pt has h/o dementia with acute mental status changes in setting of infection, improving. Hyponatremia - Na normalized with NS, now dropping. Likely needs solute. Will fluid restrict. Encourage salt containing foods. Follow. Petechial rash - plts dropped, but still >100. Query septic emboli? Discussed with ID, no echo needed as E coli unlikely to cause endocarditis. Thrush - nystatin ordered by ID. ?PE - reviewed with assistant auditor and radiology, this is sub-segmental, not likely clinically significant. Pt had GI bleeding and had to stop Xarelto when he was anticoagulated in the past for DVT in setting of B cell lymphoma. LE u/ s neg for DVT. Will d/c therapeutic Lovenox, change to pplx dose only. H/O A fib with PPM - Now in sinus. Rate controlled on Digoxin, will check level as no level sent yet. Review of records reveal he's previously been treated with full dose ASA, will resume this. CAD with h/o PCI - Stable, no active issues. Cont statin, resume ASA as above. H/O B cell lymphoma DVT PPLX - LMWH DNR Dispo - cont inpt / ICU Subjective: PT doing well. Up in chair. STates he feels weak. Seems to be closer to baseline mentation with advanced dementia. No fevers. Urine more clear. Objective: Vital Signs Temp Pulse Resp BP Pulse Ox 36 C 91 32 H 166/96 H 95 04/10/17 08:00 04/10/17 08:00 04/10/17 08:00 04/10/17 08:00 04/10/17 08:00 Laboratory Results 04/10/17 05:05 04/10/17 05:05 04/09/17 04/10/17 04/11/17 05:59 05:59 05:59 Intake Total 3014 3404 Output Total 534 6840 Balance 2063 558 PT 13.7 SEC (12.0-15.0) 04/07/17 12:00 INR 1.06 (0.83-1.16) 04/07/17 12:00 - Physical Exam Constitutional: no apparent distress Eyes: PERRL Ears, Nose, Mouth, Throat: moist mucous membranes Cardiovascular: regular rate and rhythym, no murmur, rub, or gallop Respiratory: no respiratory distress, clear to auscultation Gastrointestinal: normoactive bowel sounds, soft, non-tender abdomen Skin: warm, other (LE petecchial rash) Musculoskeletal: generalized weakness ICD10 Worksheet Patient Problems: Problems Problem Status Onset Altered mental status Acute Confusion Acute ESBL (extended spectrum beta-lactamase) producing bacteria infection Acute ~04/18 Ataxia Acute Back pain Acute
--- NOTE | 2017-04-10 09:58 | PCMIDPN ---
Assessment/Plan: 1. ESBL E coli sepsis secondary to urinary source: CT scan of the abdomen and pelvis reveals multiple cysts and stones, but the stones are nonobstructing. Will change meropenem to ertapenem, 1 g daily ( creatinine clearance is approximately 60 without need for dose adjustment). Repeat blood cultures from April 09 are sterile. Patient will require 2 weeks of intravenous therapy with ertapenem moving forward. (Stop date April 23) 2. Oral candidiasis: Will use nystatin swish and spit in this patient, as I am dubious about the use of a ricarda 5x/day in this pt with severe dementia and concern for choking. Subjective: Denies pain. Sitting in a chair, looks happy. No back pain. Objective: Meropenem 1 g IV q.8 hours day 3. Afebrile Vital Signs Temp Pulse Resp BP Pulse Ox 36 C 91 32 H 166/96 H 95 04/10/17 08:00 04/10/17 08:00 04/10/17 08:00 04/10/17 08:00 04/10/17 08:00 Laboratory Results 04/10/17 05:05 04/10/17 05:05 04/09/17 04/10/17 04/11/17 05:59 05:59 05:59 Intake Total 3013 3408 Output Total 950 2850 Balance 2063 558 Blood cultures from April 09 no growth so far Blood cultures April 0711/05 bottles with ESBL E coli, resistant to the quinolones as well April 07 urine culture with ESBL E coli - Physical Exam General Appearance: alert, no apparent distress EENT: thrush (Buccal mucosa bilaterally) Respiratory: lungs clear Extremities: other (Peripheral IV right forearm looks fine) Abdomen: non-tender, soft Back: No CVA tenderness Skin: No rash ICD10 Worksheet Patient Problems: Problems Problem Status Onset Altered mental status Acute Confusion Acute ESBL (extended spectrum beta-lactamase) producing bacteria infection Acute ~04/18 Ataxia Acute Back pain Acute
[2017-04-10] MEDS: ERTAPENEM 1 GM in NS 100 ML IV SCH (10:15)
[2017-04-10] MEDS: ASPIRIN 325 MG TAB PO SCH (11:46)
[2017-04-10] MEDS: NYSTATIN SUSP 500000 UNIT/5 ML UDCUP PO SCH ×3 (11:47→20:22)
[2017-04-10] MEDS ORDERED: K PHOS 10 MMOL in D5W 250 ML IV ONE (12:00)
--- NOTE | 2017-04-10 13:21 | PDINTPN ---
Water/Wastewater Project Engineer Progress Note Assessment/Plan: Assessment: Urosepsis, with bacteremia. Positive ESBL. On ertapenem per ID. For a 2 week course. Urinary retention/obstruction: Moon catheter in place. Possible pneumonia: Clinically this seems unlikely however he does have retrocardiac atelectasis or infiltrate. No signs or symptoms of pneumonia. If there is a pneumonia ertapenem should cover adequately. Doubt atypical Dementia, confusion, agitation. Not unexpected. Avoid benzodiazepines. Haldol ordered p.r.n. Metabolic: Multiple issues identified. On replacement protocols. Hyponatremic. Started on a oral fluid restriction. Will add salt tablets. Weakness/failure to thrive. Multifactorial, but recent decline probably related to infection. History of coronary artery disease, previous B-cell lymphoma, etc. DVT prophylaxis: Enoxaparin. GI prophylaxis: Eating Plan: Continue antibiotics. Continue present care in the intensive care unit. Infectious Disease evaluation appreciated. Will need Urology consultation, least as an outpatient. Moon to remain in place for now. Follow laboratory, chest x-ray intermittently. 25 minutes of critical care time spent directly with the patient. Discussed with the hospitalist, nursing, Infectious Disease, and the ICU multi disciplinary team. Subjective: Confused. Denies specific complaints when asked. Denies shortness of breath, chest pain Objective: Vital Signs Temp Pulse Resp BP Pulse Ox 36.6 C 92 18 123/69 H 97 04/10/17 12:00 04/10/17 12:00 04/10/17 12:00 04/10/17 12:00 04/10/17 12:00 Laboratory Results 04/10/17 05:05 04/10/17 05:05 04/09/17 04/10/17 04/11/17 05:59 05:59 05:59 Intake Total 3013 3408 Output Total 950 2850 Balance 2063 558 PT 13.7 SEC (12.0-15.0) 04/07/17 12:00 INR 1.06 (0.83-1.16) 04/07/17 12:00 Laboratory Tests 04/10/17 04/10/17 05:05 05:05 Calcium 8.3 L Ionized Calcium 1.07 L Phosphorus 1.9 L Magnesium 1.5 L Total Bilirubin 1.1 AST 33 ALT 44 Albumin 2.4 L Physical Exam - Physical Exam General Appearance: alert, mild distress (Mild agitation), thin EENT: PERRL/EOMI, other (Nasal cannula 4 L) Neck: normal inspection (No JVD) Respiratory: lungs clear (Anteriorly), decreased breath sounds (At bases), rales (Rales at L base, some bronchial change), No rhonchi, No wheezing Cardiac/Chest: regular rate, rhythm (Paced) Abdomen: normal bowel sounds, non-tender, soft Male Genitalia: other (Moon catheter in place: Adequate urine output) Skin: normal color, warm/dry Extremities: pedal edema Neuro/Psych: no motor/sensory deficits (Moves all extremities), cognition abnormalities (Confused, oriented to person), No disoriented to place, No disoriented to time ICD10 Worksheet Patient Problems: Problems Problem Status Onset ESBL (extended spectrum beta-lactamase) producing bacteria infection Acute ~04/18 Ataxia Acute Back pain Acute Altered mental status Acute Confusion Acute
[2017-04-10] MEDS: ALBUTEROL 3 ML DEYVIAL IH SCH ×2 (16:01→22:18)
[2017-04-10] MEDS: SODIUM CHLORIDE 1,000 MG TAB PO SCH ×2 (16:15→18:32)
[2017-04-10] MEDS: ATORVASTATIN CALCIUM 20 MG TAB PO SCH (20:22)
[2017-04-10] MEDS: MELATONIN 3 MG TAB PO SCH (20:23)
[2017-04-10] MEDS: LATANOPROST 0.005% 2.5 ML OPHT DROPS EACHEYE SCH (20:23)
[2017-04-11 05:16] LABS: IONIZED CALCIUM 1.16 MMOL/L (1.12-1.30)
[2017-04-11 05:25] LABS: % IMMATURE GRANULYOCYTES 2.3 % (0.0-1.1); ADD DIFF? NO; ADD MORPH? NO; ADD SCAN? YES; ATYPICAL LYMPHOCYTE FLAG 0 (0-99); FRAGMENT RBC FLAG 0 (0-99); HEMATOCRIT 34.4 % (40.0-51.0); HEMOGLOBIN 11.7 g/dL (13.7-17.5); LIPEMIA HEMOLYSIS FLAG 90 (0-99); MEAN CELL HEMOGLOBIN 30.4 pg (27.9-34.1); MEAN CELL VOLUME 89.4 fL (81.5-99.8); MEAN PLATELET VOLUME 9.5 fL (8.7-11.7); PLATELET CLUMPS FLAG 0 (0-99); PLATELET COUNT 164 10^3/uL (150-400); RED BLOOD CELL COUNT 3.85 10^6/uL (4.40-6.38); RED CELL DISTRIBUTION WIDTH 13.5 % (11.5-15.2)
[2017-04-11 05:43] LABS: LEFT SHIFT FLG 100 (0-99)
[2017-04-11 05:47] LABS: ANION GAP 6 mEq/L (8-16); CALCIUM 8.3 mg/dL (8.5-10.4); CARBON DIOXIDE 29 mEq/l (22-31); CHLORIDE 95 mEq/L (97-110); CREATININE 0.5 mg/dL (0.7-1.3); GLOMERULAR FILTRATION RATE > 60; GLUCOSE 102 mg/dL (70-100); MAGNESIUM 1.7 mg/dL (1.6-2.3); POTASSIUM 3.3 mEq/L (3.5-5.2); SODIUM 130 mEq/L (134-144)
[2017-04-11] MEDS ORDERED: POTASSIUM CL 10 MEQ TAB PO ONE ×2 (06:03→18:48)
[2017-04-11] MEDS ORDERED: MAGNESIUM SULF 1 GM/DEXTROSE 100 ML IV ONE (06:04)
[2017-04-11] MEDS: ALBUTEROL 3 ML DEYVIAL IH SCH ×4 (06:09→22:23)
[2017-04-11 06:30] LABS: SCAN NEGATIVE
[2017-04-11] MEDS: NYSTATIN SUSP 500000 UNIT/5 ML UDCUP PO SCH ×4 (06:34→20:06)
[2017-04-11] MEDS: DIGOXIN 125 MCG TAB PO SCH (08:54)
[2017-04-11] MEDS: LEVOTHYROXINE 50 MCG TAB PO SCH (08:54)
[2017-04-11] MEDS: ASPIRIN 325 MG TAB PO SCH (08:54)
[2017-04-11] MEDS: OMEGA-3 FATTY ACIDS 1,000 MG CAP PO SCH ×2 (08:54→09:03)
[2017-04-11] MEDS: PROPAFENONE HCL SR 325 MG CAP PO SCH ×2 (08:54→20:05)
[2017-04-11] MEDS: MULTIVITAMINS 1 EACH TAB PO SCH (08:54)
[2017-04-11] MEDS: ERTAPENEM 1 GM in NS 100 ML IV SCH (08:54)
[2017-04-11] MEDS: CHOLECALCIFEROL VIT D3 1,000 UNITS TAB PO SCH ×2 (08:54→20:05)
[2017-04-11] MEDS: SODIUM CHLORIDE 1,000 MG TAB PO SCH ×3 (08:54→17:01)
[2017-04-11] MEDS: ENOXAPARIN 40 MG/0.4 ML SYR SC SCH (08:54)
[2017-04-11] MEDS: SENNOSIDES/DOCUSATE SODIUM TAB PO SCH ×2 (08:54→20:05)
--- NOTE | 2017-04-11 13:06 | PCMIDPN ---
Assessment/Plan: Assessment/Plan: * Sepsis due to ESBL producing E coli bacteremia associated with urinary etiology: Clinically improved. Repeat blood cultures are no growth to date. Continue ertapenem with anticipated 10 day course post clearing of bacteremia. * Oral candidiasis: No evidence of candidiasis after initiation of nystatin. 04/11/17 13:04 Subjective: Patient without specific complaints. Objective: Vital Signs Temp Pulse Resp BP Pulse Ox 37.0 C 77 23 H 111/66 96 04/11/17 11:35 04/11/17 11:35 04/11/17 11:35 04/11/17 11:35 04/11/17 11:35 Laboratory Results 04/11/17 04:50 04/11/17 04:50 04/10/17 04/11/17 04/12/17 05:59 05:59 05:59 Intake Total 3408 1470 Output Total 2850 1300 Balance 558 170 Ertapenem # 2, antibiotics # 4 Blood cultures 04/09/2017 no growth - Physical Exam General Appearance: no apparent distress, non-toxic EENT: No scleral icterus, No thrush Respiratory: lungs clear Cardiac/Chest: regular rate, rhythm Abdomen: non-tender, No distended ICD10 Worksheet Patient Problems: Problems Problem Status Onset Altered mental status Acute Confusion Acute ESBL (extended spectrum beta-lactamase) producing bacteria infection Acute ~04/18 Ataxia Acute Back pain Acute
--- NOTE | 2017-04-11 15:06 | PDINTPN ---
Truss Driver Helper Progress Note Assessment/Plan: Assessment: Urosepsis, with bacteremia. Admitted 04/07. Positive ESBL. On ertapenem per ID. For a 2 week course. Urinary retention/obstruction: Moon catheter in place. Possible pneumonia: Clinically this seems unlikely however he does have retrocardiac atelectasis/infiltrate. No signs or symptoms of pneumonia. If there is a pneumonia ertapenem should cover adequately. Doubt atypical Dementia, confusion, agitation. Not unexpected. Avoid benzodiazepines. Haylie ordered p.r.n. He could transfer to a medical-surgical bed if a sitter were available. One is not. Will thus keep in the ICU on SDU status. Metabolic: Multiple issues identified. On replacement protocols. Hyponatremic. Sodium 130 today, better. On oral fluid restriction and salt tablets. Weakness/failure to thrive. Multifactorial, but recent more acute decline probably related to infection. History of coronary artery disease, previous B-cell lymphoma, etc. Hospitalized 03/26 for back pain and radiculopathy. Discharged to SNF. DVT prophylaxis: Enoxaparin. GI prophylaxis: Eating Plan: Continue antibiotics. Continue present care in the intensive care unit for now. Infectious Disease following. Will need Urology consultation as an outpatient. Moon to remain in place for now. Continue bronchopulmonary therapies. Continue oxygen. Repeat chest x-ray tomorrow. Follow laboratory. 35 minutes of critical care time spent directly with the patient. Discussed with the hospitalist, nursing, Infectious Disease, and the ICU multi disciplinary team. Subjective: Remains confused, agitated at times. Lethargic at times. Denies chest pain or shortness of breath. No significant cough or mucus. Objective: Vital Signs Temp Pulse Resp BP Pulse Ox 37.0 C 77 23 H 111/66 96 04/11/17 11:35 04/11/17 11:35 04/11/17 11:35 04/11/17 11:35 04/11/17 11:35 Laboratory Results 04/11/17 04:50 04/11/17 04:50 04/10/17 04/11/17 04/12/17 05:59 05:59 05:59 Intake Total 3408 1470 Output Total 2850 1300 Balance 558 170 PT 13.7 SEC (12.0-15.0) 04/07/17 12:00 INR 1.06 (0.83-1.16) 04/07/17 12:00 Laboratory Tests 04/10/17 04/11/17 04/11/17 12:11 04:50 04:50 Calcium 8.3 L Ionized Calcium 1.16 Phosphorus 2.4 L D Magnesium 1.7 Digoxin 1.1 Physical Exam - Physical Exam General Appearance: alert, no apparent distress, other (Confused) EENT: PERRL/EOMI, other (Nasal cannula at 3-4 L) Neck: normal inspection (No JVD) Respiratory: decreased breath sounds, rales (At left base. Some bronchial changes without alexsander consolidation), No rhonchi, No wheezing Cardiac/Chest: regular rate, rhythm (Paced), systolic murmur Abdomen: normal bowel sounds, non-tender, soft, other (Fairly good appetite, eating without problems. No evidence of aspiration.) Skin: normal color, warm/dry Extremities: pedal edema Neuro/Psych: no motor/sensory deficits, cognition abnormalities, disoriented to place, disoriented to time ICD10 Worksheet Patient Problems: Problems Problem Status Onset Altered mental status Acute Confusion Acute ESBL (extended spectrum beta-lactamase) producing bacteria infection Acute ~04/18 Ataxia Acute Back pain Acute
--- NOTE | 2017-04-11 16:05 | HOSPPROG ---
Hospitalist Progress Note Assessment/Plan: 86-year-old with dementia is admitted with increased weakness and altered mental status due to urosepsis. # UTI due to ESBL complicated by sepsis. Improved and hemodynamically stable currently. * Continue Invanz for 10 days post clearing blood cultures * patient improved and unable to transfer to [facility] due to mental status and need for sitter # urinary retention, status post Prater will need urology follow-up. Continue Prater at discharge. # Encephalopathy secondary to sepsis complicated by dementia at baseline # hyponatremia, resolved # thrush, on the statin # history of AFib status post pacemaker placement currently in a sinus rhythm. Currently on ditch for rate control. # CAD, no obvious symptoms. # History of B-cell lymphoma # DVT prophylaxis patient DNR Subjective: patient denies any specific complaints. Oriented times name only. Objective: Vital Signs Temp Pulse Resp BP Pulse Ox 36.9 C 70 21 H 105/55 L 95 04/11/17 15:16 04/11/17 15:16 04/11/17 15:16 04/11/17 15:16 04/11/17 15:16 Laboratory Results 04/11/17 04:50 04/11/17 04:50 04/10/17 04/11/17 04/12/17 05:59 05:59 05:59 Intake Total 3408 1470 Output Total 2850 1300 Balance 558 170 PT 13.7 SEC (12.0-15.0) 04/07/17 12:00 INR 1.06 (0.83-1.16) 04/07/17 12:00 - Physical Exam Constitutional: no apparent distress, chronically ill appearing Eyes: PERRL, EOMI Ears, Nose, Mouth, Throat: moist mucous membranes Cardiovascular: regular rate and rhythym Respiratory: no respiratory distress, reduced air movement Gastrointestinal: normoactive bowel sounds, soft, non-tender abdomen, no palpable masses Genitourinary: no bladder fullness, prater in urethra Skin: No normal color ( Pale) Musculoskeletal: generalized weakness Neurologic: other ( tremor), No AAOx3 Psychiatric: poor memory ICD10 Worksheet Patient Problems: Problems Problem Status Onset ESBL (extended spectrum beta-lactamase) producing bacteria infection Acute ~04/18 Ataxia Acute Back pain Acute Altered mental status Acute Confusion Acute
[2017-04-11 17:44] LABS: POTASSIUM 3.8 mEq/L (3.5-5.2)
[2017-04-11] MEDS: LATANOPROST 0.005% 2.5 ML OPHT DROPS EACHEYE SCH (20:06)
[2017-04-11] MEDS: ATORVASTATIN CALCIUM 20 MG TAB PO SCH (20:06)
[2017-04-11] MEDS: MELATONIN 3 MG TAB PO SCH (20:06)
[2017-04-11] MEDS: ACETAMINOPHEN 325 MG TAB PO PRN (20:23)
[2017-04-12] MEDS: HALOPERIDOL LACT 5 MG/ML INJ IVP PRN (01:52)
[2017-04-12 04:53] LABS: IONIZED CALCIUM 1.02 MMOL/L (1.12-1.30)
[2017-04-12 04:55] LABS: % IMMATURE GRANULYOCYTES 2.3 % (0.0-1.1); ABSOLUTE IMMATURE GRANULOCYTES 0.16 10^3/uL (0.00-0.10); ADD DIFF? NO; ADD MORPH? NO; ADD SCAN? NO; ATYPICAL LYMPHOCYTE FLAG 0 (0-99); FRAGMENT RBC FLAG 0 (0-99); HEMATOCRIT 30.4 % (40.0-51.0); HEMOGLOBIN 9.9 g/dL (13.7-17.5); LEFT SHIFT FLG 20 (0-99); LIPEMIA HEMOLYSIS FLAG 80 (0-99); MEAN CELL HEMOGLOBIN 30.3 pg (27.9-34.1); MEAN CELL HEMOGLOBIN CONCENTR. 32.6 g/dL (32.4-36.7); MEAN PLATELET VOLUME 9.7 fL (8.7-11.7); PLATELET CLUMPS FLAG 0 (0-99); PLATELET COUNT 154 10^3/uL (150-400); RED BLOOD CELL COUNT 3.27 10^6/uL (4.40-6.38); RED CELL DISTRIBUTION WIDTH 13.2 % (11.5-15.2)
[2017-04-12] MEDS ORDERED: CALCIUM GLUCONATE 50 ML IV ONE (05:12)
[2017-04-12 05:13] LABS: ANION GAP 3 mEq/L (8-16); CALCIUM 7.9 mg/dL (8.5-10.4); CARBON DIOXIDE 26 mEq/l (22-31); CHLORIDE 102 mEq/L (97-110); CREATININE 0.5 mg/dL (0.7-1.3); GLOMERULAR FILTRATION RATE > 60; GLUCOSE 84 mg/dL (70-100); MAGNESIUM 1.6 mg/dL (1.6-2.3); POTASSIUM 3.5 mEq/L (3.5-5.2); SODIUM 131 mEq/L (134-144)
[2017-04-12] MEDS ORDERED: POTASSIUM CL 20 MEQ TAB PO ONE ×2 (05:18→20:20)
[2017-04-12] MEDS: ALBUTEROL 3 ML DEYVIAL IH SCH ×4 (05:33→19:55)
[2017-04-12] MEDS: NYSTATIN SUSP 500000 UNIT/5 ML UDCUP PO SCH ×4 (05:34→21:15)
[2017-04-12] MEDS ORDERED: MAGNESIUM SULF 1 GM/DEXTROSE 100 ML IV ONE (07:45)
[2017-04-12] MEDS: CHOLECALCIFEROL VIT D3 1,000 UNITS TAB PO SCH ×2 (09:18→21:15)
[2017-04-12] MEDS: LEVOTHYROXINE 50 MCG TAB PO SCH (09:18)
[2017-04-12] MEDS: ASPIRIN 325 MG TAB PO SCH (09:18)
[2017-04-12] MEDS: SODIUM CHLORIDE 1,000 MG TAB PO SCH ×3 (09:18→17:58)
[2017-04-12] MEDS: OMEGA-3 FATTY ACIDS 1,000 MG CAP PO SCH (09:19)
[2017-04-12] MEDS: PROPAFENONE HCL SR 325 MG CAP PO SCH ×2 (09:19→21:15)
[2017-04-12] MEDS: SENNOSIDES/DOCUSATE SODIUM TAB PO SCH ×2 (09:19→21:16)
[2017-04-12] MEDS: MULTIVITAMINS 1 EACH TAB PO SCH (09:19)
[2017-04-12] MEDS: DIGOXIN 125 MCG TAB PO SCH (09:19)
[2017-04-12] MEDS: ENOXAPARIN 40 MG/0.4 ML SYR SC SCH (09:20)
[2017-04-12] MEDS: ERTAPENEM 1 GM in NS 100 ML IV SCH (09:20)
[2017-04-12] MEDS ORDERED: HYDROCODONE/APAP 5/325 TAB PO PRN (10:59)
[2017-04-12] MEDS ORDERED: FUROSEMIDE 40 MG/4 ML VIAL IVP ONE (11:28)
--- NOTE | 2017-04-12 13:36 | HOSPPROG ---
Hospitalist Progress Note Assessment/Plan: 86-year-old with dementia is admitted with increased weakness and altered mental status due to urosepsis. Discussed in multi-disciplinary rounds pulmonology # UTI due to ESBL complicated by sepsis. Improved and hemodynamically stable currently. * Continue Invanz for 10 days post clearing blood cultures * patient improved and unable to transfer to [facility] due to mental status and need for sitter # acute hypoxic respiratory failure with increased oxygen needs. Review chest x-ray personally and has bilateral pulmonary infiltrates consistent with either aspiration or pulmonary edema. * IV Lasix * Monitor eyes and nose and oxygen needs # nonsustained V-tach, patient on Rythmol and has a history of coronary artery disease. Continue same for now. I did talk with the about the a rib Valarie and she would prefer not to pursue any further workup or treatment for that at this time. Has been present in the past. # urinary retention, status post Prater will need urology follow-up. Continue Prater at discharge. # Encephalopathy secondary to sepsis complicated by dementia at baseline # hyponatremia, resolved # thrush, on the statin # history of AFib status post pacemaker placement currently in a sinus rhythm. Currently on digoxin for rate control. # CAD, no obvious symptoms. # History of B-cell lymphoma # DVT prophylaxis patient DNR. Had a discussion with patient's , will order palliative Care consult for goals of care given patient's overall poor prognosis. Subjective: Patient complains of pain in his low back and buttocks otherwise no chest pain no shortness of breath per patient Objective: Vital Signs Temp Pulse Resp BP Pulse Ox 36.4 C 69 18 104/48 L 94 04/12/17 12:00 04/12/17 12:00 04/12/17 12:00 04/12/17 12:00 04/12/17 12:00 Laboratory Results 04/12/17 04:30 04/12/17 04:30 04/11/17 04/12/17 04/13/17 05:59 05:59 05:59 Intake Total 1470 800 330 Output Total 1300 1050 400 Balance 170 -250 -70 PT 13.7 SEC (12.0-15.0) 04/07/17 12:00 INR 1.06 (0.83-1.16) 04/07/17 12:00 - Physical Exam Constitutional: chronically ill appearing, uncomfortable Eyes: PERRL, anicteric sclera, EOMI Ears, Nose, Mouth, Throat: moist mucous membranes Cardiovascular: regular rate and rhythym, systolic murmur Respiratory: no respiratory distress, inspiratory crackles Gastrointestinal: normoactive bowel sounds, soft, non-tender abdomen, no palpable masses Genitourinary: no bladder fullness, prater in urethra Skin: warm Neurologic: No AAOx3, No facial droop Psychiatric: poor memory ICD10 Worksheet Patient Problems: Problems Problem Status Onset ESBL (extended spectrum beta-lactamase) producing bacteria infection Acute ~04/18 Ataxia Acute Back pain Acute Altered mental status Acute Confusion Acute
--- NOTE | 2017-04-12 15:13 | PDINTPN ---
After School Counselor Progress Note Assessment/Plan: Assessment: Urosepsis, with bacteremia. Admitted 04/07. Positive ESBL. On ertapenem per ID. For a 2 week course. Urinary retention/obstruction: Moon catheter in place. Possible pneumonia: Clinically this seems unlikely however he did have retrocardiac atelectasis/infiltrate on admission but no signs or symptoms of pneumonia. If there is a pneumonia ertapenem should cover adequately. Doubt atypical. Increased infiltrates today are likely secondary to fluid retention/ pulmonary edema. Dementia, confusion, agitation. Not unexpected. Avoid benzodiazepines. He could transfer to a medical-surgical bed if a sitter were available. One is not. Will thus keep in the ICU on SDU status. Metabolic: Multiple issues identified. On replacement protocols. Hyponatremic. Sodium 131 today, better. On oral fluid restriction and salt tablets. Weakness/failure to thrive. Multifactorial, but recent more acute decline probably related to infection. History of coronary artery disease, previous B-cell lymphoma, etc. Hospitalized 03/26 for back pain and radiculopathy. Discharged to SNF. DVT prophylaxis: Enoxaparin. GI prophylaxis: Eating Plan: Continue antibiotics. Continue present care in the intensive care unit for now. Lasix today. Follow urine output. Repeat chest x-ray tomorrow. Will need Urology consultation as an outpatient. Moon to remain in place for now. Continue Zyprexa. Will give 5 mg scheduled at HS. Continue bronchopulmonary therapies. Continue oxygen. Follow laboratory. 40 minutes of critical care time spent directly with the patient. Discussed with the hospitalist, nursing, Infectious Disease, and the ICU multi disciplinary team. Subjective: Confused. Up in chair. Appears more alert this morning. Denies shortness of breath put on more oxygen. Objective: Vital Signs Temp Pulse Resp BP Pulse Ox 36.4 C 69 18 104/48 L 94 04/12/17 12:00 04/12/17 12:00 04/12/17 12:00 04/12/17 12:00 04/12/17 12:00 Laboratory Results 04/12/17 04:30 04/12/17 04:30 04/11/17 04/12/17 04/13/17 05:59 05:59 05:59 Intake Total 1470 800 330 Output Total 1300 1050 400 Balance 170 -250 -70 PT 13.7 SEC (12.0-15.0) 04/07/17 12:00 INR 1.06 (0.83-1.16) 04/07/17 12:00 Laboratory Tests 04/12/17 04/12/17 04:30 04:30 Calcium 7.9 L Ionized Calcium 1.02 L Phosphorus 2.6 Magnesium 1.6 CXR: Increased bilateral pulmonary infiltrates most consistent with congestive heart failure/pulmonary edema. Cannot rule out pneumonitis, possibly from aspiration. ICD10 Worksheet Patient Problems: Problems Problem Status Onset ESBL (extended spectrum beta-lactamase) producing bacteria infection Acute ~04/18 Ataxia Acute Back pain Acute Altered mental status Acute Confusion Acute
--- NOTE | 2017-04-12 18:19 | PCMIDPN ---
Assessment/Plan: Assessment/Plan: * Sepsis due to ESBL producing E coli bacteremia associated with urinary etiology: Continued clinical improvement with repeat blood culture showing clearing of bacteremia. Anticipate 10 day course of ertapenem post negative blood cultures (stop date 04/19/2017) * Oral candidiasis: No evidence of candidiasis after initiation of nystatin. 04/12/17 18:17 04/12/17 18:18 Subjective: Patient complains of not feeling well. Objective: Vital Signs Temp Pulse Resp BP Pulse Ox 36.9 C 76 20 102/44 L 98 04/12/17 16:00 04/12/17 16:25 04/12/17 16:25 04/12/17 16:00 04/12/17 16:25 Laboratory Results 04/12/17 04:30 04/11/17 04/12/17 04/13/17 05:59 05:59 05:59 Intake Total 1470 800 330 Output Total 1300 1050 2050 Balance 170 -250 -1720 Ertapenem # 3 Antibiotics # 5 Blood cultures 04/09/2017 no growth - Physical Exam General Appearance: alert, no apparent distress EENT: No thrush Abdomen: non-tender, No distended Back: No CVA tenderness ICD10 Worksheet Patient Problems: Problems Problem Status Onset Altered mental status Acute Confusion Acute ESBL (extended spectrum beta-lactamase) producing bacteria infection Acute ~04/18 Ataxia Acute Back pain Acute
[2017-04-12 18:25] LABS: POTASSIUM 3.6 mEq/L (3.5-5.2)
[2017-04-12] MEDS: LATANOPROST 0.005% 2.5 ML OPHT DROPS EACHEYE SCH (20:30)
[2017-04-12] MEDS: MELATONIN 3 MG TAB PO SCH (21:15)
[2017-04-12] MEDS: ATORVASTATIN CALCIUM 20 MG TAB PO SCH (21:15)
[2017-04-12] MEDS: OLANZapine DISINTEGR 5 MG TAB PO SCH (21:16)
[2017-04-13] MEDS: NYSTATIN SUSP 500000 UNIT/5 ML UDCUP PO SCH ×4 (05:11→21:24)
[2017-04-13] MEDS: ALBUTEROL 3 ML DEYVIAL IH SCH ×4 (05:36→20:48)
[2017-04-13 05:41] LABS: IONIZED CALCIUM 1.13 MMOL/L (1.12-1.30)
[2017-04-13 05:52] LABS: ADD DIFF? YES; ADD MORPH? NO; ADD SCAN? NO; ATYPICAL LYMPHOCYTE FLAG 0 (0-99); FRAGMENT RBC FLAG 0 (0-99); HEMATOCRIT 32.9 % (40.0-51.0); HEMOGLOBIN 10.8 g/dL (13.7-17.5); LEFT SHIFT FLG 20 (0-99); LIPEMIA HEMOLYSIS FLAG 80 (0-99); MEAN CELL HEMOGLOBIN 30.2 pg (27.9-34.1); MEAN CELL HEMOGLOBIN CONCENTR. 32.8 g/dL (32.4-36.7); MEAN CELL VOLUME 91.9 fL (81.5-99.8); MEAN PLATELET VOLUME 9.5 fL (8.7-11.7); PLATELET CLUMPS FLAG 0 (0-99); PLATELET COUNT 193 10^3/uL (150-400); RED BLOOD CELL COUNT 3.58 10^6/uL (4.40-6.38); RED CELL DISTRIBUTION WIDTH 13.3 % (11.5-15.2)
[2017-04-13 06:03] LABS: ANION GAP 4 mEq/L (8-16); CALCIUM 8.5 mg/dL (8.5-10.4); CARBON DIOXIDE 35 mEq/l (22-31); CHLORIDE 93 mEq/L (97-110); CREATININE 0.5 mg/dL (0.7-1.3); GLOMERULAR FILTRATION RATE > 60; GLUCOSE 89 mg/dL (70-100); MAGNESIUM 1.8 mg/dL (1.6-2.3); POTASSIUM 3.8 mEq/L (3.5-5.2); SODIUM 132 mEq/L (134-144)
[2017-04-13] MEDS ORDERED: POTASSIUM CL 10 MEQ TAB PO ONE ×2 (06:10→09:30)
[2017-04-13] MEDS ORDERED: MAGNESIUM SULF 1 GM/DEXTROSE 100 ML IV ONE ×2 (06:10→09:30)
[2017-04-13 06:23] LABS: PLATELET ESTIMATE ADEQUATE (ADEQ)
[2017-04-13] MEDS: PROPAFENONE HCL SR 325 MG CAP PO SCH ×2 (09:27→21:24)
[2017-04-13] MEDS: ASPIRIN 325 MG TAB PO SCH (09:27)
[2017-04-13] MEDS: ENOXAPARIN 40 MG/0.4 ML SYR SC SCH (09:27)
[2017-04-13] MEDS: SENNOSIDES/DOCUSATE SODIUM TAB PO SCH ×2 (09:27→21:24)
[2017-04-13] MEDS: MULTIVITAMINS 1 EACH TAB PO SCH (09:27)
[2017-04-13] MEDS: LEVOTHYROXINE 50 MCG TAB PO SCH (09:27)
[2017-04-13] MEDS: SODIUM CHLORIDE 1,000 MG TAB PO SCH ×3 (09:27→18:46)
[2017-04-13] MEDS: OMEGA-3 FATTY ACIDS 1,000 MG CAP PO SCH (09:27)
[2017-04-13] MEDS: DIGOXIN 125 MCG TAB PO SCH (09:28)
[2017-04-13] MEDS: CHOLECALCIFEROL VIT D3 1,000 UNITS TAB PO SCH ×2 (09:28→21:24)
[2017-04-13] MEDS: ERTAPENEM 1 GM in NS 100 ML IV SCH (09:46)
[2017-04-13] MEDS: ACETAMINOPHEN 325 MG TAB PO PRN (09:46)
[2017-04-13] MEDS ORDERED: FUROSEMIDE 20 MG/2 ML VIAL IVP ONE (11:54)
--- NOTE | 2017-04-13 11:58 | HOSPPROG ---
Hospitalist Progress Note Assessment/Plan: 86-year-old with dementia is admitted with increased weakness and altered mental status due to urosepsis. Discussed in multi-disciplinary rounds pulmonology # UTI due to ESBL complicated by sepsis. Improved and hemodynamically stable currently. * Continue Invanz for 10 days post clearing blood cultures, end date 04/19. Appreciate ID consult * patient improved and unable to transfer to [facility] due to mental status and need for sitter # acute hypoxic respiratory failure with increased oxygen needs. Review chest x-ray personally and has bilateral pulmonary infiltrates consistent with either aspiration or pulmonary edema. * IV Lasix again today x1, will monitor electrolytes CO2 and creatinine * Monitor I/Os and oxygen needs # nonsustained V-tach, patient on Rythmol and has a history of coronary artery disease. Continue same for now. I did talk with the about the a rib Valarie and she would prefer not to pursue any further workup or treatment for that at this time. Has been present in the past. # urinary retention, status post Moon will need urology follow-up. Continue Moon at discharge. # Encephalopathy secondary to sepsis complicated by dementia at baseline # hyponatremia, resolved # thrush, on the statin # history of AFib status post pacemaker placement currently in a sinus rhythm. Currently on digoxin for rate control. # CAD, no obvious symptoms. # History of B-cell lymphoma # DVT prophylaxis patient DNR. Had a discussion with patient's , will order palliative Care consult for goals of care given patient's overall poor prognosis. Okay to transfer to floor with telemetry. Subjective: Still confused. More appropriate per nursing staff. No complaints today. Objective: Vital Signs Temp Pulse Resp BP Pulse Ox 36.7 C 117 H 15 125/63 H 94 04/13/17 04:00 04/13/17 09:28 04/13/17 08:00 04/13/17 04:00 04/13/17 08:00 Laboratory Results 04/13/17 05:05 04/13/17 05:05 04/12/17 04/13/17 04/14/17 05:59 05:59 05:59 Intake Total 800 730 Output Total 1050 2590 Balance -250 -1860 PT 13.7 SEC (12.0-15.0) 04/07/17 12:00 INR 1.06 (0.83-1.16) 04/07/17 12:00 - Physical Exam Constitutional: no apparent distress, not in pain, chronically ill appearing, other (Sleepy) Eyes: PERRL Ears, Nose, Mouth, Throat: dry mucous membranes Cardiovascular: regular rate and rhythym, edema (Trace) Respiratory: no respiratory distress, inspiratory crackles, bronchial breath sounds Gastrointestinal: normoactive bowel sounds, soft, non-tender abdomen, no palpable masses Skin: warm Musculoskeletal: generalized weakness Neurologic: No AAOx3, No facial droop Psychiatric: poor insight, poor judgement, poor memory ICD10 Worksheet Patient Problems: Problems Problem Status Onset ESBL (extended spectrum beta-lactamase) producing bacteria infection Acute ~04/18 Ataxia Acute Back pain Acute Altered mental status Acute Confusion Acute
--- NOTE | 2017-04-13 13:00 | PDINTPN ---
Store Associate Progress Note Assessment/Plan: Assessment/plan: 86 M admitted 04/07/17 with urosepsis after traumatic prater removal at [facility]. He developed urinary retenstion and sepsis from ESBL coupled with bacteremia and PNA. He responded to abx, but was thought to have fluid overload on CXR so was treated with diuretics. * Urosepsis- improving on Ertapenem with dropping WBC. * Acute hypoxic respiratory failure from pneumonia and/or fluid overload. Agre with additional gentle diuresis today and monitor. * NSVT/afib- currently stable and apparently requesting no further workup. Consider palliative care * Altered MS- responds to questions but limited communication. Objective: Vital Signs Temp Pulse Resp BP Pulse Ox 36.7 C 117 H 15 125/63 H 94 04/13/17 04:00 04/13/17 09:28 04/13/17 08:00 04/13/17 04:00 04/13/17 08:00 Laboratory Results 04/13/17 05:05 04/13/17 05:05 04/12/17 04/13/17 04/14/17 05:59 05:59 05:59 Intake Total 800 730 Output Total 1050 2590 Balance -250 -1860 PT 13.7 SEC (12.0-15.0) 04/07/17 12:00 INR 1.06 (0.83-1.16) 04/07/17 12:00 Physical Exam - Physical Exam General Appearance: thin, other (somnolent and minimal interaction) EENT: PERRL/EOMI Neck: supple Respiratory: decreased breath sounds, rales Cardiac/Chest: regular rate, rhythm, No edema Abdomen: non-tender, soft, No distended Skin: normal color, warm/dry Lymphatic: no adenopathy Extremities: No pedal edema Neuro/Psych: cognition abnormalities, disoriented to place, disoriented to time , No abnormal pigment mixer II-XII ICD10 Worksheet Patient Problems: Problems Problem Status Onset Altered mental status Acute Confusion Acute ESBL (extended spectrum beta-lactamase) producing bacteria infection Acute ~04/18 Ataxia Acute Back pain Acute
[2017-04-13 19:19] LABS: POTASSIUM 4.5 mEq/L (3.5-5.2)
[2017-04-13] MEDS: ATORVASTATIN CALCIUM 20 MG TAB PO SCH (21:24)
[2017-04-13] MEDS: MELATONIN 3 MG TAB PO SCH (21:24)
[2017-04-13] MEDS: OLANZapine DISINTEGR 5 MG TAB PO SCH (21:25)
[2017-04-13] MEDS: LATANOPROST 0.005% 2.5 ML OPHT DROPS EACHEYE SCH (21:25)
[2017-04-14 05:08] LABS: IONIZED CALCIUM 1.06 MMOL/L (1.12-1.30)
[2017-04-14 05:09] LABS: HEMATOCRIT 36.7 % (40.0-51.0); HEMOGLOBIN 12.2 g/dL (13.7-17.5); MEAN CELL HEMOGLOBIN 30.6 pg (27.9-34.1); MEAN CELL HEMOGLOBIN CONCENTR. 33.2 g/dL (32.4-36.7); RED BLOOD CELL COUNT 3.99 10^6/uL (4.40-6.38); RED CELL DISTRIBUTION WIDTH 13.2 % (11.5-15.2)
[2017-04-14] MEDS: NYSTATIN SUSP 500000 UNIT/5 ML UDCUP PO SCH ×4 (05:14→21:21)
[2017-04-14] MEDS: ALBUTEROL 3 ML DEYVIAL IH SCH ×4 (05:48→21:22)
[2017-04-14 06:15] LABS: ANION GAP 10 mEq/L (8-16); CARBON DIOXIDE 30 mEq/l (22-31); CHLORIDE 95 mEq/L (97-110); CREATININE 0.5 mg/dL (0.7-1.3); GLOMERULAR FILTRATION RATE > 60; GLUCOSE 91 mg/dL (70-100); POTASSIUM 3.7 mEq/L (3.5-5.2); SODIUM 135 mEq/L (134-144)
[2017-04-14] MEDS ORDERED: POTASSIUM CL 10 MEQ TAB PO ONE ×2 (08:02→22:08)
--- NOTE | 2017-04-14 09:12 | PCMIDPN ---
Assessment/Plan: Assessment/Plan: 1. ESBL E. coli sepsis/bacteremia secondary to urinary source: - f/u blood cx from 04/09/17 ngtd -currenty on Invanz therapy -wbc lisette, creatinine stable. LFt from 04/10/17 wnl -Continue on invanz therapy as outlined by Dr. Walden until 04/19/17 -No further ID recs. ID to sign off. PLease call with questions. Meds invanz 1g daily- Subjective: afebrile. sitting up in bed. Denies sob, abd pain or diarrhea. Objective: Vital Signs Temp Pulse Resp BP Pulse Ox 36.9 C 82 18 139/74 H 90 L 04/14/17 08:00 04/14/17 08:00 04/14/17 08:00 04/14/17 08:00 04/14/17 08:00 Microbiology 04/09/17 06:40 Blood Culture - Final Blood 04/09/17 06:50 Blood Culture - Final Blood Laboratory Results 04/14/17 04:30 04/14/17 04:30 04/13/17 04/14/17 04/15/17 05:59 05:59 05:59 Intake Total 730 150 Output Total 2590 1500 Balance -1860 -1350 - Physical Exam General Appearance: alert, no apparent distress Respiratory: coarse breath sounds (mild) Cardiac/Chest: regular rate, rhythm Extremities: No swelling Abdomen: normal bowel sounds, non-tender, soft, No distended Male Genitalia: prater Skin: No erythema ICD10 Worksheet Patient Problems: Problems Problem Status Onset Altered mental status Acute Confusion Acute ESBL (extended spectrum beta-lactamase) producing bacteria infection Acute ~04/18 Ataxia Acute Back pain Acute
[2017-04-14] MEDS: SODIUM CHLORIDE 1,000 MG TAB PO SCH ×3 (10:02→17:03)
[2017-04-14] MEDS: SENNOSIDES/DOCUSATE SODIUM TAB PO SCH ×2 (10:03→21:16)
[2017-04-14] MEDS: CHOLECALCIFEROL VIT D3 1,000 UNITS TAB PO SCH ×2 (10:04→21:15)
[2017-04-14] MEDS: OMEGA-3 FATTY ACIDS 1,000 MG CAP PO SCH (10:04)
[2017-04-14] MEDS: LEVOTHYROXINE 50 MCG TAB PO SCH (10:04)
[2017-04-14] MEDS: MULTIVITAMINS 1 EACH TAB PO SCH (10:04)
[2017-04-14] MEDS: ASPIRIN 325 MG TAB PO SCH (10:05)
[2017-04-14] MEDS: ERTAPENEM 1 GM in NS 100 ML IV SCH (10:05)
[2017-04-14] MEDS: ENOXAPARIN 40 MG/0.4 ML SYR SC SCH (10:05)
--- NOTE | 2017-04-14 10:12 | HOSPPROG ---
Hospitalist Progress Note Assessment/Plan: 86-year-old with dementia is admitted with increased weakness and altered mental status due to urosepsis. Today is my first encounter with the patient/ chart reviewed. Discussed his care w Dr Neri who saw him yesterday. * ESBL e coli sepsis/bacteremia with urine as the source Invanz until 04/19 *UTI on Invanz *Acute hypoxemic respiratory failure chest xray from yesterday shows bilateral pulm infilitrates ? aspiration or pulmonary edema given a dose of Lasix yesterday, will give another dose on 5 liters * nonsustained V-tach, patient on Rythmol see Dr Neri's note for further info place on tele/is in a sinus rhythm * urinary retention, status post Moon will need urology follow-up. Continue Moon at discharge. * Encephalopathy secondary to sepsis complicated by dementia at baseline * hyponatremia, resolved * thrush/nystatin * history of AFib status post pacemaker placement currently in a sinus rhythm. Currently on digoxin for rate control. * CAD, no symptoms. * History of B-cell lymphoma * DVT prophylaxis: LMWH *Plan: Palliative Care to meet with patient,his and family tomorrow. Has had significant medical issues complicated w the dementia. Subjective: Gus is confused/ appears comfortable. Objective: Vital Signs Temp Pulse Resp BP Pulse Ox 36.9 C 82 18 139/74 H 90 L 04/14/17 08:00 04/14/17 08:00 04/14/17 08:00 04/14/17 08:00 04/14/17 08:00 Microbiology 04/09/17 06:40 Blood Culture - Final Blood 04/09/17 06:50 Blood Culture - Final Blood Laboratory Results 04/14/17 04:30 04/14/17 04:30 04/13/17 04/14/17 04/15/17 05:59 05:59 05:59 Intake Total 730 150 Output Total 2590 1500 Balance -1860 -1350 PT 13.7 SEC (12.0-15.0) 04/07/17 12:00 INR 1.06 (0.83-1.16) 04/07/17 12:00 - Physical Exam Constitutional: chronically ill appearing Eyes: PERRL Ears, Nose, Mouth, Throat: hard of hearing Cardiovascular: regular rate and rhythym, No tachycardia Respiratory: no respiratory distress, reduced air movement (very poor respiratory effort) Gastrointestinal: normoactive bowel sounds Skin: warm Musculoskeletal: generalized weakness Neurologic: other (awakens, put confused) ICD10 Worksheet Patient Problems: Problems Problem Status Onset Altered mental status Acute Confusion Acute ESBL (extended spectrum beta-lactamase) producing bacteria infection Acute ~04/18 Ataxia Acute Back pain Acute
[2017-04-14] MEDS ORDERED: CALCIUM GLUCONATE 50 ML IV ONE (10:22)
[2017-04-14] MEDS ORDERED: FUROSEMIDE 20 MG/2 ML VIAL IVP ONE (11:08)
[2017-04-14] MEDS: PROPAFENONE HCL SR 325 MG CAP PO SCH ×2 (16:59→19:57)
[2017-04-14] MEDS: DIGOXIN 125 MCG TAB PO SCH (16:59)
[2017-04-14 18:37] LABS: POTASSIUM 3.7 mEq/L (3.5-5.2)
[2017-04-14] MEDS: OLANZapine DISINTEGR 5 MG TAB PO SCH (21:08)
[2017-04-14] MEDS: MELATONIN 3 MG TAB PO SCH (21:13)
[2017-04-14] MEDS: ATORVASTATIN CALCIUM 20 MG TAB PO SCH (21:15)
[2017-04-14] MEDS: LATANOPROST 0.005% 2.5 ML OPHT DROPS EACHEYE SCH (21:16)
[2017-04-15 04:57] LABS: IONIZED CALCIUM 1.16 MMOL/L (1.12-1.30)
[2017-04-15 05:22] LABS: MAGNESIUM 1.8 mg/dL (1.6-2.3); POTASSIUM 3.7 mEq/L (3.5-5.2)
[2017-04-15] MEDS: ALBUTEROL 3 ML DEYVIAL IH SCH ×4 (05:52→22:40)
[2017-04-15] MEDS: NYSTATIN SUSP 500000 UNIT/5 ML UDCUP PO SCH ×4 (06:18→21:28)
[2017-04-15] MEDS: ERTAPENEM 1 GM in NS 100 ML IV SCH (08:15)
[2017-04-15] MEDS: DIGOXIN 125 MCG TAB PO SCH (08:22)
[2017-04-15] MEDS: ASPIRIN 325 MG TAB PO SCH (08:23)
[2017-04-15] MEDS: LEVOTHYROXINE 50 MCG TAB PO SCH (08:25)
[2017-04-15] MEDS: SODIUM CHLORIDE 1,000 MG TAB PO SCH ×3 (08:26→17:33)
[2017-04-15] MEDS: MULTIVITAMINS 1 EACH TAB PO SCH (08:28)
[2017-04-15] MEDS: SENNOSIDES/DOCUSATE SODIUM TAB PO SCH ×2 (08:32→21:28)
[2017-04-15] MEDS: ENOXAPARIN 40 MG/0.4 ML SYR SC SCH (08:34)
[2017-04-15] MEDS: CHOLECALCIFEROL VIT D3 1,000 UNITS TAB PO SCH ×2 (09:55→21:28)
[2017-04-15] MEDS: OMEGA-3 FATTY ACIDS 1,000 MG CAP PO SCH (09:59)
[2017-04-15] MEDS ORDERED: POTASSIUM CL 10 MEQ TAB PO ONE ×3 (10:12→19:11)
[2017-04-15] MEDS ORDERED: MAGNESIUM SULF 1 GM/DEXTROSE 100 ML IV ONE (10:12)
[2017-04-15] MEDS: PROPAFENONE HCL SR 325 MG CAP PO SCH ×2 (11:35→20:31)
--- NOTE | 2017-04-15 14:00 | HOSPPROG ---
Hospitalist Progress Note Assessment/Plan: 86-year-old with dementia is admitted with increased weakness and altered mental status due to urosepsis. Today is my first encounter with the patient/ chart reviewed. Discussed his care with palliative care. * ESBL e coli sepsis/bacteremia with urine as the source Invanz until 04/19 *UTI on Invanz *Acute hypoxemic respiratory failure chest xray from shows bilateral pulm infilitrates ? aspiration or pulmonary edema given a dose of Lasix, consider more on 5 liters check ECHO * nonsustained V-tach, patient on Rythmol see Dr Neri's note for further info place on tele/is in a sinus rhythm * urinary retention, status post Moon will need urology follow-up. Continue Moon at discharge. * Encephalopathy secondary to sepsis complicated by dementia at baseline not recovering palliative care ordered * hyponatremia, resolved * thrush/nystatin * history of AFib status post pacemaker placement currently in a sinus rhythm. Currently on digoxin for rate control. * CAD, no symptoms. * History of B-cell lymphoma * DVT prophylaxis: LMWH *Plan: Palliative Care to meet with patient,his and family today. Has had significant medical issues complicated w the dementia. Check ECHO Subjective: Minimal interaction. Family at bedside. Objective: Vital Signs Temp Pulse Resp BP Pulse Ox 36.6 C 81 18 140/74 H 97 04/15/17 07:43 04/15/17 10:47 04/15/17 10:47 04/15/17 07:43 04/15/17 10:47 Laboratory Results 04/14/17 04:30 04/15/17 04:55 04/14/17 04/15/17 04/16/17 05:59 05:59 05:59 Intake Total 150 550 Output Total 2500 1975 Balance -2350 -1425 PT 13.7 SEC (12.0-15.0) 04/07/17 12:00 INR 1.06 (0.83-1.16) 04/07/17 12:00 - Physical Exam Constitutional: chronically ill appearing, uncomfortable, cachectic Eyes: PERRL, anicteric sclera, EOMI Ears, Nose, Mouth, Throat: moist mucous membranes, ears appear normal, hard of hearing Cardiovascular: No JVD, No tachycardia, No edema Respiratory: no respiratory distress, no rales or rhonchi, reduced air movement Gastrointestinal: No tenderness, No ascites, No guarding Skin: warm, normal color, No erythema Musculoskeletal: no joint effusions, generalized weakness, No normal joint ROM Neurologic: No AAOx3 Psychiatric: poor insight, poor judgement, No interacting appropriately, No thought process linear ICD10 Worksheet Patient Problems: Problems Problem Status Onset Altered mental status Acute Confusion Acute ESBL (extended spectrum beta-lactamase) producing bacteria infection Acute ~04/18 Ataxia Acute Back pain Acute
--- NOTE | 2017-04-15 15:46 | ECHO ---
[id number] + + [address] : : [place] [address] : : [phone] + Adult Echocardiographic Report + --------+ :Name: TESSA LEBLANC JStudy Date: 04/15/2017 02:47 PM : : Hospital Admission Number: [id number] Locat ion: 382: :: 1930 Gender: Male Height: 68 in : :Age: 86 yrs Race: WH,White Weight: 117 l b : :Reason For Study: fluid overload : : BSA: 1.6 mete rs2 : :History: fluid overload : + --------+ MMode/2D Measurements \T\ Calculations IVSd: 1.2 cm LVIDd: 4.5 cm FS: 25.2 % Ao root diam: LVPWd: 0.85 cm LVIDs: 3.3 cm EDV(Teich): 3.9 cm 90.1 ml ESV(Teich): 45.1 ml EF(Teich): 49.9 % LVLd ap4: 7.5 cm SV(MOD-sp4): EDV(MOD-sp4): 73.0 ml 123.0 ml LVLs ap4: 6.3 cm ESV(MOD-sp4): 50.0 ml EF(MOD-sp4): 59.3 % Normal Measurement Values: + + :LVIDd (3.5-5.7cm) IVSd (0.6-1.1cm) LVPWd (0.6-1.1cm) Aortic Root (2.0-3.7cm)Left Atrium (1.5-4.0cm): :LV Vol(d) (76-115ml) LV Vol(s) (29-48ml) Ejec Fraction (50-65%)PV Damian (0.6- 1.2m/s) TV Damian (0.4-1.0m/s) : :MV E Damian (0.8-1.0m/s)MV A Damian (0.3-1.0m/s)LVOT Damian (0.7-1.2m/s) Asc Ao Damian ( 0.9-1.8m/s) : + + Doppler Measurements \T\ Calculations MV E max damian: Ao V2 max: AI max damian: LV V1 max: 88.4 cm/sec 142.3 cm/sec 293.2 cm/sec 91.8 cm/sec MV A max damian: Ao max PG: AI max P.4 mmHg LV V1 max P.2 cm/sec 8.1 mmHg AI dec slope: 3.4 mmHg MV E/A: 0.90 150.2 cm/sec2 MV dec time: AI P1/2t: 571.6 msec 0.23 sec PA V2 max: TR max damian: 76.0 cm/sec 286.4 cm/sec PA max PG: TR max P.3 mmHg 32.8 mmHg RAP systole: 5.0 mmHg RVSP(TR): 37.8 mmHg Left Ventricle The left ventricle is normal in size and function. Mild proximal septal thickening without LVOT obstruction. Ejection Fraction = 55%. There is Doppler evidence for diastolic dysfunction. Elevated LV fillling pressures. No regional wall motion abnormalities noted. Right Ventricle The right ventricle is normal in size and function. There is a pacemaker lead in the right ventricle. Atria The left atrium is severely dilated. The Left Atrial Volume is 52 ml/m2. The right atrium is mildly dilated. Mitral Valve The mitral valve leaflets appear thickened, but open well. There is mild to moderate mitral annular calcification. There is no mitral valve stenosis. There is mild mitral regurgitation. Tricuspid Valve The tricuspid valve is normal in structure and function. There is no tricuspid stenosis. There is mild to moderate tricuspid regurgitation. Right ventricular systolic pressure is 38mmHg. Aortic Valve The aortic valve is trileaflet. Mild-Moderate Aortic Valve Calcification. There is no aortic stenosis. Moderate to severe aortic regurgitation. There is an eccentric jet of aortic insufficiency directed against the anterior mitral leaflet. Pulmonic Valve The pulmonic valve is normal in structure and function. trace to mild pulmonic valvular regurgitation. Great Vessels Mild aortic root dilatation. Mildly dilated ascending aorta at 4 cm. Pericardium/Pleural There is no pericardial effusion. Conclusion A two-dimensional transthoracic echocardiogram with M-mode and Doppler was performed. The left ventricle is normal in size and function. Ejection Fraction = 55%. There is Doppler evidence for diastolic dysfunction and elevated LV filling pressures The left atrium is severely dilated. The Left Atrial Volume is 52 ml/m2. The right atrium is mildly dilated. There is mild mitral regurgitation. Moderate to severe aortic regurgitation. There is mild to moderate tricuspid regurgitation. Right ventricular systolic pressure is 38mmHg. Mild-Moderate Aortic Valve Calcification trace to mild pulmonic valvular regurgitation. Mild aortic root dilatation. Mildly dilated ascending aorta at 4 cm Compared with 06/24/2016, AR has progressed slightly. Estimated PA systolic pressures are lower. Final Reading Physician: Dr Francine Sousa electronically signed on 04/15/2017 03:46 PM Ordering Physician: Jayla Smyth Performed By: Alize Mart
--- NOTE | 2017-04-15 15:56 | WOCRNPDOC ---
KEMAL Advanced Assessment Note - Skin Integrity Problem, Advanced Assess Coccyx Pressure Injury Dressing Type: Allevyn Life Dressing Description: Clean/Dry, Intact Exudate Amount: None Integumentary Issue Intervention: Visualized Under Dressing Karen Wound Tissue: Erythema, Non-blanching, Scarred (small flat discolored scar tissue) Karen Wound Swelling: None Wound Bed Color: [place] Wound Bed Constitution: Smooth Tissue Wound Edges: Attached, Well Defined Site Odor: None Site Measurement - Head-to-Toe Length X Width X Depth (cm): 0.5 x 0.3 x 0.1 Pressure Injury Stage: Stage 2 (vs Moisture-Associated dermatitis) Skin Integrity Problem Comment: Small opening in scar tissue at coccyx presenting with shallow partial thickness tissue loss. Suspected mixed etiology injury. reports that patient had suffered a fall from a ladder "years ago, " in which his bilateral ischia were wounded, but she is not sure whether the coccyx was affected at that time. Patient is resting on his left side, on a TAPS , with q2h turns in effect. Have added dressing change orders and discussed treatment plan with and son. Report to SARBJIT Elizabeth.
--- NOTE | 2017-04-15 18:12 | PDPCPN ---
Palliative Care Progress Note Assessment/Plan: Referring provider: Jayla Bernard Reason for consult: Complex medical decision making Symptom control HPI: Gus Bonilla is a 86 yo male with PMH a fib, b cell lymphoma in remission, lumbar pain, and dementia admitted to the hospital for increased weakness and AMS. found to be septic with bacteremia from ESBL in the urine. Started on IV antibiotics. Hospitalization complicated by NSVT and acute resp failure 2/2 pul edema. Clinical not improving back to baseline and remains weak with poor appetite and confusion. At baseline 3 weeks ago was walking around the block as well as able to communicate his needs. Recent hospitalization 03/2017 after fall with back pain 2/2 lumbar radiculopathy and sent to [facility] for rehab at discharge. Palliative care consulted for complex medical decision making. Met with Michelle, sons Boubacar and Leonel as well as RICHARD at the bedside this morning. 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 He has cognitively declined over the past year since his chemo treatment. They state he has had a decline with each chemo treatment and each hospitalization. They see the decline and feel he is at end of life. He is not wanting to eat or drink and would not want life prolongation measures at this time. He has an advanced directive with no wishes for artificial nutrition. We discussed focusing on comfort care only at [facility]. They do not want to continue IV antibiotics as that would require another medical intervention ( PICC line). Discussed with primary team as well as case management about plans for discharge and wish for DO NOT re hospitalize and allow for natural course of disease. Assessment: Physical: - Pain: back pain mostly when moved - tylenol PRN - Weakness/poor appetite: - full nursing support - general diet as tolerated/wanted - constipation - hx of chronic constipation - dulcolax supp PRN Emotional/psychological: Hallucinating : on zyprexa scheduled - haldol PRN Advanced Care Planning: Is patient decisional?: No Code Status: DNR/DNI POA: Michelle and Daughter Priya are MDPOA. Plan: To [facility] for palliative care only and do not rehospitalize. Family does not want to continue IV antibiotics or PICC line. 04/15/17 18:13 Subjective: unable to assess, mumbles words Objective: Social History: to Michelle for almost 70 years. 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 Has 3 children all out of state and many grandchildren and great grandchildren. Medication list reviewed ROS: General: fatigue, weakness, weight loss ENT: dry mouth Resp:thick secretion GI: poor appetite, chronic constipation : urinary retention MS: back pain Skin: negative Neuro: fnegative Psych: mood, hallucinations Functional assessment: PPS: 30% Functional status: dependent on ADLs, IADLs Vital Signs Temp Pulse Resp BP Pulse Ox 36.9 C 75 69 H 137/71 H 5 L 04/15/17 16:00 04/15/17 16:00 04/15/17 16:42 04/15/17 16:00 04/15/17 16:00 Laboratory Results 04/14/17 04:30 04/15/17 04:55 04/14/17 04/15/17 04/16/17 05:59 05:59 05:59 Intake Total 150 550 150 Output Total 2500 1975 1050 Balance -2350 -1425 -900 PT 13.7 SEC (12.0-15.0) 04/07/17 12:00 INR 1.06 (0.83-1.16) 04/07/17 12:00 Physical Exam - Physical Exam General Appearance: no apparent distress, other (hallunicating ) Respiratory: No respiratory distress, No accessory muscle use Skin: normal color, warm/dry Extremities: pedal edema Neuro/Psych: disoriented to place, disoriented to time ICD10 Worksheet Patient Problems: Problems Problem Status Onset Altered mental status Acute Confusion Acute ESBL (extended spectrum beta-lactamase) producing bacteria infection Acute ~04/18 Palliative care encounter Acute Ataxia Acute Back pain Acute - ICD10 Problem Qualifiers (1) Palliative care encounter
[2017-04-15 18:41] LABS: POTASSIUM 3.4 mEq/L (3.5-5.2)
[2017-04-15] MEDS: OLANZapine DISINTEGR 5 MG TAB PO SCH (20:31)
[2017-04-15] MEDS: MELATONIN 3 MG TAB PO SCH (20:32)
[2017-04-15] MEDS: LATANOPROST 0.005% 2.5 ML OPHT DROPS EACHEYE SCH (21:28)
[2017-04-15] MEDS: ATORVASTATIN CALCIUM 20 MG TAB PO SCH (21:28)
[2017-04-16 05:05] LABS: IONIZED CALCIUM 1.22 MMOL/L (1.12-1.30)
[2017-04-16 05:16] LABS: MAGNESIUM 1.9 mg/dL (1.6-2.3); POTASSIUM 3.7 mEq/L (3.5-5.2)
[2017-04-16] MEDS: ALBUTEROL 3 ML DEYVIAL IH SCH ×2 (05:24→12:00)
[2017-04-16] MEDS: NYSTATIN SUSP 500000 UNIT/5 ML UDCUP PO SCH ×2 (06:06→12:40)
--- NOTE | 2017-04-16 08:36 | PDIAF ---
- Diagnosis Diagnosis: ESBL Code Status: Do Not Resuscitate - Medication Management Discharge Medications: Medications to Continue on Transfer Acetaminophen [Tylenol ES 500 mg (*)] 1,000 mg PO Q8H PRN 04/07/17 [Last Taken Unknown] Cholecalciferol Vit D3 [Vitamin D3 (*)] 1,000 units PO BID 04/07/17 [Last Taken Unknown] Digoxin [Digox] 125 mcg PO DAILY 04/07/17 [Last Taken Unknown] Latanoprost 0.005% [Xalatan 0.005% (*)] 1 drops EACHEYE HS 04/07/17 [Last Taken Unknown] Levothyroxine [Synthroid 50 mcg (*)] 50 mcg PO DAILY 04/07/17 [Last Taken Unknown] Propafenone HCl Sr [Rythmol Sr 325mg (*)] 325 mg PO BID 04/07/17 [Last Taken Unknown] traMADol [Ultram 50 mg (*)] 25 mg PO Q6H PRN 04/07/17 [Last Taken Unknown] Albuterol [Proventil Neb] 3 ml IH QID deyvial 04/16/17 [Last Taken Unknown] Aspirin [Aspirin 325 mg (*)] 325 mg PO DAILY tab 04/16/17 [Last Taken Unknown] Melatonin [Melatonin 3 MG (*)] 3 mg PO HS tab 04/16/17 [Last Taken Unknown] OLANZapine DISINTEGR [ZyPREXA ZYDIS (*)] 5 mg PO HS tab 04/16/17 [Last Taken Unknown] OLANZapine DISINTEGR [ZyPREXA ZYDIS (*)] 5 mg PO Q6 PRN #0 tab 04/16/17 [Last Taken Unknown] Discharge Medications: Refer to the Discharge Home Medication list for PRN reason. PICC Care - Routine: N/A - Orders Services needed: Registered Nurse, Physical Therapy, Occupational Therapy Diet Texture: Regular Texture Diet, Thin Liquids, Meds Whole w/Liquids, Meds Whole in Puree - Follow Up Care Current Providers and Referrals: Nacho Boogie MD [Primary Care Provider] - As per Instructions
[2017-04-16 09:11] VITALS: BP 128/69; TEMP 98.2
[2017-04-16] MEDS: ERTAPENEM 1 GM in NS 100 ML IV SCH (09:14)
[2017-04-16] MEDS: ENOXAPARIN 40 MG/0.4 ML SYR SC SCH (09:18)
[2017-04-16] MEDS: PROPAFENONE HCL SR 325 MG CAP PO SCH ×2 (09:21→11:14)
[2017-04-16] MEDS: OMEGA-3 FATTY ACIDS 1,000 MG CAP PO SCH (09:22)
[2017-04-16] MEDS: CHOLECALCIFEROL VIT D3 1,000 UNITS TAB PO SCH (09:23)
[2017-04-16] MEDS: MULTIVITAMINS 1 EACH TAB PO SCH (09:23)
[2017-04-16] MEDS: ASPIRIN 325 MG TAB PO SCH ×2 (09:23→11:15)
[2017-04-16] MEDS: SODIUM CHLORIDE 1,000 MG TAB PO SCH ×2 (09:23→12:36)
[2017-04-16] MEDS: DIGOXIN 125 MCG TAB PO SCH ×2 (09:23→11:15)
[2017-04-16] MEDS: LEVOTHYROXINE 50 MCG TAB PO SCH (09:24)
[2017-04-16] MEDS: SENNOSIDES/DOCUSATE SODIUM TAB PO SCH (09:24)
[2017-04-16] MEDS ORDERED: POTASSIUM CL 10 MEQ TAB PO ONE (10:55)
[2017-04-16 12:14] VITALS: PULSE 78; RESP 14; O2SAT 94
--- NOTE | 2017-04-16 13:27 | HOSPPROG ---
Hospitalist Progress Note Assessment/Plan: 86-year-old with dementia is admitted with increased weakness and altered mental status due to urosepsis. * ESBL e coli sepsis/bacteremia with urine as the source Invanz DC'D per MDPOA *UTI no further treatment *Acute hypoxemic respiratory failure chest xray from shows bilateral pulm infilitrates ? aspiration or pulmonary edema given a dose of Lasix, consider more on 5 liters ECHO EF stable but MR severe * nonsustained V-tach, patient on Rythmol see Dr Neri's note for further info place on tele/is in a sinus rhythm * urinary retention, status post Moon will need urology follow-up. Continue Moon at discharge. * Encephalopathy secondary to sepsis complicated by dementia at baseline not recovering palliative care ordered * hyponatremia, resolved * thrush/nystatin * history of AFib status post pacemaker placement currently in a sinus rhythm. Currently on digoxin for rate control. * CAD, no symptoms. * History of B-cell lymphoma * DVT prophylaxis: LMWH *Plan: Palliative Care. Comfort only with no intervention. Transfer to [facility]. Has had significant medical issues complicated w the dementia. Pt MDPOA refusing KUB, suppository, enema and other aggressive bowel therapy. Pt unresponsive and actively dieing. No further interventions warranted at this time. Comfort only. Subjective: Unresponsive. Objective: Vital Signs Temp Pulse Resp BP Pulse Ox 36.8 C 78 14 128/69 H 94 04/16/17 08:00 04/16/17 12:00 04/16/17 12:00 04/16/17 08:00 04/16/17 12:00 Laboratory Results 04/14/17 04:30 04/16/17 04:45 04/15/17 04/16/17 04/17/17 05:59 05:59 05:59 Intake Total 550 200 Output Total 1974 2049 Balance -1425 -1850 PT 13.7 SEC (12.0-15.0) 04/07/17 12:00 INR 1.06 (0.83-1.16) 04/07/17 12:00 - Physical Exam Constitutional: chronically ill appearing, cachectic Ears, Nose, Mouth, Throat: ears appear normal Cardiovascular: No JVD, No tachycardia, No edema Respiratory: no respiratory distress, reduced air movement, rhonchi Gastrointestinal: No tenderness, No ascites, No guarding Skin: warm, normal color, No mottled Neurologic: No AAOx3 Psychiatric: encephalopathic ICD10 Worksheet Patient Problems: Problems Problem Status Onset Palliative care encounter Acute ESBL (extended spectrum beta-lactamase) producing bacteria infection Acute ~04/18 Ataxia Acute Back pain Acute Altered mental status Acute Confusion Acute
--- NOTE | 2017-04-16 13:38 | GDS ---
[f rep st] DISCHARGE SUMMARY DISCHARGE DIAGNOSES: 1. Extended-spectrum beta-lactamase urinary tract infection. 2. Failure to thrive. 3. Extended-spectrum beta-lactamase sepsis with bacteremia. 4. Acute hypoxemic respiratory failure. 5. Nonsustained ventricular tachycardia. 6. Urinary retention. 7. Encephalopathy. 8. Hyponatremia. 9. Thrush. 10. History of atrial fibrillation. 11. History of B-cell lymphoma. CONSULTATIONS: 1. Infectious Disease. 2. Pulmonology. PHYSICAL EXAMINATION: GENERAL: The patient is minimally arousable. VITAL SIGNS: Afebrile at 36.8 . Pulse is 82. Respiratory rate is 20. Blood pressure is 128/69. He is saturating 96% on 3 L. I have seen and evaluated the patient on the day of discharge. HOSPITAL COURSE: 1. The patient is an 86-year-old male who developed increasing weakness and altered mental status. He was evaluated and diagnosed with ESBL sepsis and bacteremia. He received IV antibiotic therapy [facility], as well as an Infectious Disease consultation. The family hernandez s opted to discontinue any further antibiotic therapy. 2. Acute hypoxemic respiratory failure. This is in the setting of sepsis and failure to thrive. 3. Nonsustained ventricular tachycardia. The patient was initiated on Rythmol. 4. Encephalopathy. This is in the setting of acute illness and baseline dementia. DISPOSITION: The patient has had a palliative care consult during this hospitalization. His family has opted for him to be discharged to [facility] with palliative care option and to not return to [facility] for further hospitalization. They have opted to discontinue IV antibiotic therapy at th is time as they do not wish to place a PICC line. It is noted that the patient is a DNR and that no aggressive measures should be made in his further care. DISCHARGE MEDICATIONS: Please refer to EMR form. I have discussed the patient's disposition with the upper caser and the nurse. There are no pendin g studies. I have spent greater than 35 minutes in the care, coordination, and management of the patient's disc harge. /[id number]/MODL
== END 2017-04-16 14:35 | DRG 871 ==
LOC: EDUNIT# → F2N 17:24 → F3N 04-13 22:47 → F3E 04-14 20:20
PROVIDERS: ADMIT Internal Medicine; ATTEND Student in an Organized Health Care Education/Training Program
DX: A41.51 Sepsis due to Escherichia coli [E. coli] (principal); N39.0 Urinary tract infection, site not specified; B96.20 Unspecified Escherichia coli [E. coli] as the cause of diseases classified elsewhere; G93.40 Encephalopathy, unspecified; J96.01 Acute respiratory failure with hypoxia; E87.1 Hypo-osmolality and hyponatremia; L89.152 Pressure ulcer of sacral region, stage 2; B37.0 Candidal stomatitis; R62.7 Adult failure to thrive; R23.3 Spontaneous ecchymoses; R33.9 Retention of urine, unspecified; F03.90 Unspecified dementia, unspecified severity, without behavioral disturbance, psychotic disturbance, mood disturbance, and anxiety; C83.30 Diffuse large B-cell lymphoma, unspecified site; I47.2 Ventricular tachycardia; I25.10 Atherosclerotic heart disease of native coronary artery without angina pectoris; M48.06 Spinal stenosis, lumbar region; M54.16 Radiculopathy, lumbar region; I48.91 Unspecified atrial fibrillation; Z66 Do not resuscitate; Z95.0 Presence of cardiac pacemaker
CPT/HCPCS: 92523-GN; 92610-GN; 92611-GN; 96374; 97110-GP; 97116-GP; 97162-GP; 97166-GO; 97530-GO; 97530-GP; 97535-GO; G8978-GP-CK; G8979-GP-CI; G8987-GO-CL; G8988-GO-CJ; G8996-GN-CH; G8996-GN-CI; G8997-GN-CH; G8997-GN-CI; G8998-GN-CH; G8998-GN-CI; G9168-GN-CM; G9169-GN-CL; J0610; J0696; J1335; J1650; J1940; J2185; J3370; J3475; P9041; Q9967